=== PATIENT | male | born 1960 ===

== ENCOUNTER 2016-07-17 06:28 | Day surgery (SDC) | payer OTHER ==
[2016-07-17 07:20] VITALS: BMI 33.0
--- NOTE | 2016-07-17 08:37 | CP.SDSHP ---
Same Day Surgery H & P - History Proposed Procedure: COLONSCOPY Pre-Op Diagnosis: SEE NOTES - Previous Medical/Surgical History Cardiac: Hypertension Endocrine/Metabolic: Diabetes, Other Misc: Other Pain: 2.Mild Pain - Allergies Allergies: Allergies No Known Allergies Allergy (Verified 07/17/16 07:18) - Physical Exam General Appearance: N Vital Signs: Vital Signs 07/17/16 07:15 Temperature 98.4 F Pulse Rate 80 Respiratory 20 Rate Blood Pressure 148/91 H O2 Sat by Pulse 98 Oximetry Mental Status: Alert & Oriented x3 Neuro: WNL Heart: Other Lungs: WNL GI: WNL - {Optional Preform as Required} Breast: WNL Abdomen: Other Rectal: WNL Integument: WNL : WNL Ortho: WNL ENT: WNL - Impression Pt. Evaluated Today:Candidate for Anesthesia & Procedure: Yes - Date & Time Time: 08:36 Short Stay Discharge - Short Stay Discharge Admitting Diagnosis/Reason for Visit: ENCOUNTER FOR SCREENING FOR MALIGNANT NEOPLASM OF Disposition: HOME/ ROUTINE
[2016-07-17] MEDS ORDERED: Propofol 10 mg/ml Inj (20 ML) ONE (08:41)
[2016-07-17] MEDS ORDERED: Belladonna-Phenobarbital PO STA (08:51)
[2016-07-17 09:13] VITALS: RESP 14; TEMP 98.6
[2016-07-17 10:09] VITALS: O2SAT 100
[2016-07-17 13:44] VITALS: BP 141/102; PULSE 83
== END 2016-07-17 11:15 | disposition home or self-care (01) ==
LOC: C.ENDO 06:28
PROVIDERS: ATTEND Specialist
DX: Z12.11 Encounter for screening for malignant neoplasm of colon (principal); K57.30 Diverticulosis of large intestine without perforation or abscess without bleeding; K63.89 Other specified diseases of intestine; K64.4 Residual hemorrhoidal skin tags
CPT/HCPCS: 45380; 82948; 88305; J2704

== ENCOUNTER 2016-09-17 15:10 | Emergency (ER) | payer OTHER ==
[2016-09-17 15:10] VITALS: BMI 33.0
[2016-09-17 15:29] VITALS: BP 160/106; TEMP 98.1
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
[2016-09-17 16:52] VITALS: PULSE 89; RESP 20
[2016-09-17 16:56] VITALS: O2SAT 96
== END 2016-09-17 16:52 | disposition home or self-care (01) ==
LOC: C.ER 15:10
DX: S39.012A Strain of muscle, fascia and tendon of lower back, initial encounter (principal); S16.1XXA Strain of muscle, fascia and tendon at neck level, initial encounter; V43.52XA Car driver injured in collision with other type car in traffic accident, initial encounter; Y92.410 Unspecified street and highway as the place of occurrence of the external cause

== ENCOUNTER 2017-10-19 10:38 | Emergency (ER) | payer BC, OTHER ==
[2017-10-19 10:46] VITALS: BMI 31.8
[2017-10-19 10:53] VITALS: RESP 18; O2SAT 98
[2017-10-19] MEDS ORDERED: Sodium Chloride 0.9% 1,000 ML IV SCH (11:30)
--- NOTE | 2017-10-19 11:55 | RAD ---
Date of service: 10/19/2017 HISTORY: Code Stroke COMPARISON: No prior. FINDINGS: LUNGS: No active pulmonary disease. PLEURA: No significant pleural effusion identified, no pneumothorax apparent. CARDIOVASCULAR: Normal. OSSEOUS STRUCTURES: Degenerative changes. VISUALIZED UPPER ABDOMEN: Normal. OTHER FINDINGS: None. IMPRESSION: No active disease.
[2017-10-19 12:03] LABS: BASO % 0.6 % (0.0-2.0); EOS # 0.2 K/uL (0.0-0.7); LYMPH # 2.5 K/uL (1.0-4.3); LYMPH % 35.2 % (20.0-40.0); MEAN CELL VOLUME 85.3 fL (80.0-94.0); MEAN CORPUSCULAR HEMOGLOBIN 30.2 pg (27.0-31.0); MEAN CORPUSCULAR HGB CONC 35.4 g/dL (33.0-37.0); MEAN PLATELET VOLUME 8.3 fL (7.2-11.7); MONO # 0.5 K/uL (0.0-0.8); MONO % 7.3 % (0.0-10.0); NEUT # 3.9 K/uL (1.8-7.0); NEUT % 53.9 % (50.0-75.0); NRBC % 0.1 % (0.0-2.0); RBC 4.98 Mil/uL (4.40-5.90); RED CELL DISTRIBUTION WIDTH 13.6 % (11.5-14.5); WHITE BLOOD COUNT 7.2 K/uL (4.8-10.8)
[2017-10-19 12:04] LABS: PROTHROMBIN TIME 10.8 SECONDS (9.7-12.2)
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
[2017-10-19 12:17] LABS: ALB/GLOB RATIO 1.6 (1.0-2.1); ALBUMIN 4.5 g/dL (3.5-5.0); ALT/SGPT 24 U/L (21-72); AST/SGOT 25 U/L (17-59); BLOOD UREA NITROGEN 15 mg/dL (9-20); CALCIUM 9.2 mg/dl (8.6-10.4); GFR NON-AFRICAN AMERICAN > 60; HDL CHOLESTEROL 29 mg/dL (30-70)
--- NOTE | 2017-10-19 12:26 | CT ---
Date of service: 10/19/2017 PROCEDURE: CT HEAD WITHOUT CONTRAST. HISTORY: headache, weakness, dizziness COMPARISON: 09/17/2016. TECHNIQUE: Axial computed tomography images were obtained through the head/brain without intravenous contrast. Radiation dose: Total exam DLP = 852.25 mGy-cm. This CT exam was performed using one or more of the following dose reduction techniques: Automated exposure control, adjustment of the mA and/or kV according to patient size, and/or use of iterative reconstruction technique. FINDINGS: HEMORRHAGE: No intracranial hemorrhage. BRAIN: There are mild chronic microangiopathic changes. There is no mass, mass effect or abnormal extra-axial fluid collection. There is no territorial infarction. The midline sagittal structures are normal. VENTRICLES: There is mild age-related global parenchymal volume loss and proportionate enlargement of the ventricles and cortical sulci. CALVARIUM: The skull base and calvarium are normal. PARANASAL SINUSES: Predominantly clear. MASTOID AIR CELLS: Unr predominantly clear. OTHER FINDINGS: None. IMPRESSION: No acute intracranial abnormality. No significant interval change.
[2017-10-19 12:28] LABS: LDL CHOLESTEROL 78 mg/dL (0-129)
[2017-10-19 14:11] VITALS: BP 170/99; PULSE 78; TEMP 98
--- NOTE | 2017-10-20 08:52 | CARD ---
APPROVED REPORT Date of service: 10/19/2017 EKG Measurement Heart [id number] <Conclusion> Normal sinus rhythm Normal ECG
== END 2017-10-19 15:55 | disposition home or self-care (01) ==
LOC: C.ER 10:38
DX: R51 Headache (principal); R42 Dizziness and giddiness
CPT/HCPCS: 70450; 71045; 80053; 80061; 82948; 83036; 84484; 85025; 85610; 85730; 93005; 96374; 99285; J1885; J7030

== ENCOUNTER 2018-03-05 08:09 | Emergency (ER) | payer BC ==
[2018-03-05 08:09] VITALS: BMI 31.8
[2018-03-05 08:57] LABS: BASO # 0.1 K/uL (0.0-0.2); EOS # 0.2 K/uL (0.0-0.7); EOS % 2.9 % (0.0-4.0); LYMPH % 34.1 % (20.0-40.0); MEAN CELL VOLUME 86.1 fL (80.0-94.0); MEAN CORPUSCULAR HEMOGLOBIN 30.7 pg (27.0-31.0); MEAN CORPUSCULAR HGB CONC 35.7 g/dL (33.0-37.0); MEAN PLATELET VOLUME 7.8 fL (7.2-11.7); MONO # 0.5 K/uL (0.0-0.8); MONO % 7.7 % (0.0-10.0); NEUT # 3.2 K/uL (1.8-7.0); NEUT % 54.3 % (50.0-75.0); RBC 4.88 Mil/uL (4.40-5.90); RED CELL DISTRIBUTION WIDTH 13.1 % (11.5-14.5)
[2018-03-05 09:12] LABS: ALB/GLOB RATIO 1.5 (1.0-2.1); ALBUMIN 4.3 g/dL (3.5-5.0); ALT/SGPT 48 U/L (21-72); AST/SGOT 45 U/L (17-59); BLOOD UREA NITROGEN 12 mg/dL (9-20); CALCIUM 8.8 mg/dl (8.6-10.4); GFR NON-AFRICAN AMERICAN > 60
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
[2018-03-05 09:21] LABS: B-TYPE NATRIURETIC PEPTIDE 14.4 pg/mL (0-900)
--- NOTE | 2018-03-05 09:58 | RAD ---
Date of service: 03/05/2018 PROCEDURE: CHEST RADIOGRAPH, 1 VIEW HISTORY: SOB COMPARISON: 10/19/2017. FINDINGS: LUNGS: The lungs are well inflated and clear. PLEURA: No pneumothorax or pleural effusion. CARDIOVASCULAR: The heart is normal in size. No aortic atherosclerotic calcifications present. OSSEOUS STRUCTURES: Within normal limits for the patient's age. VISUALIZED UPPER ABDOMEN: Normal. OTHER FINDINGS: None. IMPRESSION: No active pulmonary disease.
[2018-03-05] MEDS ORDERED: Labetalol 5 mg/ml Inj 20ML IV STA ×3 (10:16→12:39)
[2018-03-05] MEDS ORDERED: Apap-Butalbital-Caffeine 325-50-40mg Tab PO STA (10:16)
[2018-03-05] MEDS ORDERED: Apap-Butalbital-Caffeine 325-50-40mg Tab ONE (10:25)
[2018-03-05] MEDS ORDERED: Labetalol 5mg/ml (4ml) ONE ×2 (10:25→11:35)
[2018-03-05 11:20] LABS: SQUAMOUS EPITHIAL < 1 /hpf (0-5); URINE BILIRUBIN NEGATIVE (NEGATIVE); URINE BLOOD NEGATIVE (NEGATIVE); URINE CLARITY Clear (Clear); URINE COLOR Yellow (YELLOW); URINE GLUCOSE (UA) 3+ mg/dL (Normal); URINE LEUKOCYTE ESTERASE NEG Leu/uL (Negative); URINE PROTEIN 2+ mg/dL (NEGATIVE); URINE UROBILINOGEN NORMAL mg/dL (0.2-1.0)
--- NOTE | 2018-03-05 12:14 | CT ---
Date of service: 03/05/2018 PROCEDURE: CT HEAD WITHOUT CONTRAST. HISTORY: Headache COMPARISON: Comparison made with prior CT scan brain 10/19/2017.. TECHNIQUE: Axial computed tomography images were obtained through the head/brain without intravenous contrast. Radiation dose: Total exam DLP = 1050.23 mGy-cm. This CT exam was performed using one or more of the following dose reduction techniques: Automated exposure control, adjustment of the mA and/or kV according to patient size, and/or use of iterative reconstruction technique. FINDINGS: HEMORRHAGE: No acute parenchymal, subarachnoid or extra-axial hemorrhage.. BRAIN: Mild diffuse/confluent chronic periventricular white matter ischemic changes seen extending peripherally into the deep white matter both cerebral hemispheres.. Additionally, there are scattered chronic appearing bilateral basal nuclei lacunar type infarcts. Mild generalized volume loss. No obvious parenchymal nor extra-axial masses or collections seen on this noncontrast study. Very minimal vascular calcifications both carotid siphons. VENTRICLES: No obstructive hydrocephalus. CALVARIUM: Calvarium intact.. PARANASAL SINUSES: Unremarkable as visualized. No significant inflammatory changes. MASTOID AIR CELLS: Unremarkable as visualized. No inflammatory changes. OTHER FINDINGS: None. IMPRESSION: No acute intracranial hemorrhage.. Mild chronic white matter ischemic changes with scattered chronic bilateral basal nuclei lacunar type infarcts. Mild generalized volume loss.
[2018-03-05 15:18] VITALS: BP 162/98; PULSE 95; RESP 18; TEMP 97.9; O2SAT 98
== END 2018-03-05 15:16 | disposition home or self-care (01) ==
LOC: C.ER 08:09
DX: I10 Essential (primary) hypertension (principal); R42 Dizziness and giddiness; R51 Headache; E78.00 Pure hypercholesterolemia, unspecified; Z87.891 Personal history of nicotine dependence
CPT/HCPCS: 70450; 71045; 80053; 81001; 82948; 83735; 83880; 84484; 85025; 93005; 96374; 99285; J2405

== ENCOUNTER 2018-03-19 18:25 | Observation (INO) | payer BC ==
[2018-03-19 18:34] VITALS: BMI 32.3
[2018-03-19 18:54] LABS: BASO # 0.1 K/uL (0.0-0.2); BASO % 0.9 % (0.0-2.0); EOS # 0.3 K/uL (0.0-0.7); EOS % 3.3 % (0.0-4.0); HEMOGLOBIN 15.3 g/dL (12.0-18.0); LYMPH # 3.9 K/uL (1.0-4.3); LYMPH % 41.7 % (20.0-40.0); MEAN CELL VOLUME 86.3 fL (80.0-94.0); MEAN CORPUSCULAR HEMOGLOBIN 29.8 pg (27.0-31.0); MEAN CORPUSCULAR HGB CONC 34.5 g/dL (33.0-37.0); MEAN PLATELET VOLUME 7.9 fL (7.2-11.7); MONO # 0.8 K/uL (0.0-0.8); MONO % 8.1 % (0.0-10.0); NEUT # 4.3 K/uL (1.8-7.0); RBC 5.16 Mil/uL (4.40-5.90); RED CELL DISTRIBUTION WIDTH 13.2 % (11.5-14.5)
[2018-03-19 18:58] LABS: WHITE BLOOD COUNT 9.4 K/uL (4.8-10.8)
[2018-03-19 19:04] LABS: PROTHROMBIN TIME 10.9 SECONDS (9.7-12.2)
--- NOTE | 2018-03-19 19:04 | CT ---
Date of service: 03/19/2018 PROCEDURE: CT HEAD WITHOUT CONTRAST. HISTORY: Code Stroke, left-sided weakness. COMPARISON: 03/05/2018 CT head. TECHNIQUE: Axial computed tomography images were obtained through the head/brain without intravenous contrast. Supplemental Coronal and Sagittal projections created and reviewed. Radiation dose: Total exam DLP = 1073.82 mGy-cm. This CT exam was performed using one or more of the following dose reduction techniques: Automated exposure control, adjustment of the mA and/or kV according to patient size, and/or use of iterative reconstruction technique. FINDINGS: HEMORRHAGE: No intracranial hemorrhage. BRAIN: No mass effect or edema. No atrophy or chronic microvascular ischemic changes. VENTRICLES: Unremarkable. No hydrocephalus. CALVARIUM: Unremarkable. PARANASAL SINUSES: Unremarkable as visualized. No significant inflammatory changes. MASTOID AIR CELLS: Unremarkable as visualized. No inflammatory changes. OTHER FINDINGS: None. IMPRESSION: No acute intracranial abnormalities. No significant findings to account for the clinical presentation. Code stroke protocol: Study completed 18:47 Radiologist notified 18:51. Results conveyed verbally at 18:59. Interpretation finalized and available for review 19:00.
[2018-03-19 19:09] LABS: ALB/GLOB RATIO 1.5 (1.0-2.1); ALBUMIN 4.9 g/dL (3.5-5.0); ALT/SGPT 36 U/L (21-72); AST/SGOT 35 U/L (17-59); BLOOD UREA NITROGEN 13 mg/dL (9-20); CALCIUM 8.8 mg/dl (8.6-10.4); GFR NON-AFRICAN AMERICAN > 60; HDL CHOLESTEROL 35 mg/dL (30-70)
[2018-03-19 19:18] LABS: LDL CHOLESTEROL 78 mg/dL (0-129)
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
[2018-03-19] MEDS ORDERED: Potassium Chloride 20 mEq ER Tab PO STA (20:23)
[2018-03-19] MEDS ORDERED: Potassium Chloride 20 mEq ER Tab PO ONE (20:41)
[2018-03-19] MEDS: (Novolin R) Insulin Human Regular 100 units/ml vial SC SCH (22:28)
[2018-03-19] MEDS: Omega-3-Acid Ethyl Esters 1 GM Cap PO SCH (23:08)
[2018-03-19 23:16] VITALS: RESP 20
[2018-03-20 00:58] LABS: URINE BILIRUBIN NEGATIVE (NEGATIVE); URINE BLOOD NEGATIVE (NEGATIVE); URINE CLARITY Clear (Clear); URINE COLOR Yellow (YELLOW); URINE GLUCOSE (UA) NORMAL (Normal); URINE LEUKOCYTE ESTERASE NEG Leu/uL (Negative); URINE PROTEIN 1+ mg/dL (NEGATIVE); URINE UROBILINOGEN NORMAL mg/dL (0.2-1.0)
[2018-03-20] MEDS: (Novolin R) Insulin Human Regular 100 units/ml vial SC SCH ×5 (08:16→21:19)
--- NOTE | 2018-03-20 08:22 | RAD ---
Chest x-ray single frontal view HISTORY: Code stroke. COMPARISON: 03/05/2018 Findings: No focal infiltrate or effusion. Heart size within normal limits. Impression: No focal infiltrate or effusion.
[2018-03-20 08:33] LABS: BASO # 0.1 K/uL (0.0-0.2); BASO % 0.8 % (0.0-2.0); EOS # 0.2 K/uL (0.0-0.7); EOS % 3.2 % (0.0-4.0); HEMOGLOBIN 15.6 g/dL (12.0-18.0); LYMPH # 2.8 K/uL (1.0-4.3); LYMPH % 39.6 % (20.0-40.0); MEAN CELL VOLUME 86.6 fL (80.0-94.0); MEAN CORPUSCULAR HGB CONC 34.6 g/dL (33.0-37.0); MEAN PLATELET VOLUME 7.8 fL (7.2-11.7); MONO # 0.6 K/uL (0.0-0.8); MONO % 7.9 % (0.0-10.0); NEUT # 3.4 K/uL (1.8-7.0); NEUT % 48.5 % (50.0-75.0); RBC 5.2 Mil/uL (4.40-5.90); RED CELL DISTRIBUTION WIDTH 13.1 % (11.5-14.5)
[2018-03-20 08:52] LABS: ALB/GLOB RATIO 1.5 (1.0-2.1); ALBUMIN 4.7 g/dL (3.5-5.0); ALT/SGPT 38 U/L (21-72); AST/SGOT 47 U/L (17-59); BLOOD UREA NITROGEN 12 mg/dL (9-20); GFR NON-AFRICAN AMERICAN > 60; HDL CHOLESTEROL 36 mg/dL (30-70)
--- NOTE | 2018-03-20 08:59 | CT ---
Date of service: 03/19/2018 PROCEDURE: CT Angiography of the neck and brain with contrast HISTORY: Left side numbness COMPARISON: None. TECHNIQUE: Contiguous axial images of the neck brain were obtained from the level of the vertex of the skull to the superior mediastinum in the arteriographic phase of enhancement. Coronal and sagittal reformats or also generated. IV contrast dose: 100 cc Visipaque 320 Radiation dose: Total exam DLP = 635.59 mGy-cm. This CT exam was performed using one or more of the following dose reduction techniques: Automated exposure control, adjustment of the mA and/or kV according to patient size, and/or use of iterative reconstruction technique. FINDINGS: RIGHT CAROTID ARTERIES: Common Carotid Artery: Normal. Carotid Bifurcation: Normal. Internal Carotid Artery:Normal. External Carotid Artery (proximal branches): Normal. LEFT CAROTID ARTERIES: Common Carotid Artery: Normal. Carotid Bifurcation: Normal. Internal Carotid Artery:Normal. External Carotid Artery (proximal branches): Normal. VERTEBRAL ARTERIES: Asymmetry of the vertebral arteries right-sided which is much smaller in caliber compared to the left side. OTHER FINDINGS: The major branches of the [id number] patent. Distal branches the anterior middle and posterior cerebral arteries are symmetric. No evidence of intracerebral large aneurysm nor vascular malformation. Minimal aortic atherosclerotic calcification or mural plaque present. 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 Multilevel degenerative spondylosis of the cervical spine IMPRESSION: Normal CT Angiography of the neck.
[2018-03-20 09:02] LABS: LDL CHOLESTEROL 80 mg/dL (0-129)
[2018-03-20] MEDS: Omega-3-Acid Ethyl Esters 1 GM Cap PO SCH ×2 (09:33→17:26)
--- NOTE | 2018-03-20 09:45 | CP.PCM.PN ---
Subjective - Date & Time of Evaluation Date of Evaluation: 03/20/18 Time of Evaluation: 09:45 - Subjective Subjective: H&P [facility] #[id number] Objective - Vital Signs/Intake and Output Vital Signs (last 24 hours): Temp Pulse Resp BP Pulse Ox 97.7 F 80 20 153/104 H 98 03/20/18 08:55 03/20/18 08:55 03/20/18 08:55 03/20/18 08:55 03/20/18 08:55 Intake and Output: 03/20/18 03/20/18 06:59 18:59 Output Total 800 Balance -800 - Medications Medications: Current Medications Aspirin (Aspirin) 325 mg PO DAILY [facility] Last Admin: 03/20/18 09:33 Dose: 325 mg Enoxaparin Sodium (Lovenox) 40 mg SC DAILY [facility] Hydrochlorothiazide (Microzide) 12.5 mg PO DAILY [facility] Last Admin: 03/20/18 09:33 Dose: 12.5 mg Insulin Human Regular (Novolin R) 1 unit SC [facility]; Protocol Last Admin: 03/20/18 08:16 Dose: Not Given Lisinopril (Zestril) 20 mg PO DAILY [facility] Last Admin: 03/20/18 09:33 Dose: 20 mg Losartan Potassium (Cozaar) 50 mg PO DAILY [facility] Last Admin: 03/20/18 09:33 Dose: 50 mg [id number] Ethyl Esters (Lovaza) 1 gm PO BID [facility] Last Admin: 03/20/18 09:33 Dose: 1 gm Rosuvastatin Calcium (Crestor) 10 mg PO HS [facility] Last Admin: 03/19/18 22:27 Dose: 10 mg - Labs Labs: 03/20/18 08:24 03/20/18 08:24 PT 10.9 SECONDS (9.7-12.2) 03/19/18 18:45 INR 1.0 03/19/18 18:45 APTT 33 SECONDS (21-34) 03/19/18 18:45
[2018-03-20] MEDS: Enoxaparin 40 mg Syringe SC SCH (11:18)
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
--- NOTE | 2018-03-20 17:18 | MRI ---
Date of service: 03/20/2018 PROCEDURE: MRI BRAIN WITHOUT CONTRAST HISTORY: Stroke COMPARISON: Comparison made with prior CT scan and CTA brain 03/19/2017. TECHNIQUE: Multiplanar, multisequence MR images of the brain were obtained without intravenous contrast enhancement. FINDINGS: HEMORRHAGE: No acute parenchymal, subarachnoid or extra-axial. No obvious hemosiderin deposition identified on gradient echo weighted sequence. DWI: No evidence of acute or subacute infarcts seen on diffusion imaging. BRAIN PARENCHYMA: Mild chronic periventricular white matter ischemic changes seen extending peripherally into the deep white matter both cerebral hemispheres. In addition, there are multiple chronic appearing lacunar type infarcts scattered about the deep and subcortical white matter including the superior basal nuclei/coronal radiata junctions. Questionable tiny dilated perivascular space or lacunar type infarct left cerebral peduncle. Slightly low lying cerebellar tonsils. Mild age-appropriate volume loss. No obvious parenchymal nor extra-axial masses or collections seen on this noncontrast exam. VENTRICLES: Unremarkable. No hydrocephalus. CRANIUM: Unremarkable. ORBITS: Grossly unremarkable. PARANASAL SINUSES/MASTOIDS: Paranasal sinuses are well-developed and currently well-aerated. VASCULAR SYSTEM: Visualized major vascular flow voids at skull base patent. OTHER FINDINGS: None. IMPRESSION: Mild chronic periventricular white matter ischemic changes seen extending peripherally into the deep white matter both cerebral hemispheres. In addition, there are multiple chronic appearing lacunar type infarcts scattered about the deep and subcortical white matter including the superior basal nuclei/coronal radiata junctions. Questionable tiny dilated perivascular space or lacunar type infarct left cerebral peduncle. Slightly low lying cerebellar tonsils.
--- NOTE | 2018-03-20 17:43 | CARD ---
APPROVED REPORT Date of service: 03/20/2018 EXAM: Two-dimensional and M-mode echocardiogram with Doppler and color Doppler. INDICATION CVA/TIA Dizziness and Vertigo 2D DIMENSIONS IVSd1.0 (0.7-1.1cm)Aortic Root (2D)3.1 (2.0-3.7cm) LVDd4.3 (3.9-5.9cm)PWd1.0 (0.7-1.1cm) LA [id number] (18-58mL)LVDs2.8 (2.5-4.0cm) FS (%) 36.0 %LVEF (%)65.9 (>50%) LVEF (Hanson's)59.97 %IVC0.00 cm M-Mode DIMENSIONS Left Atrium (MM)3.35 (2.5-4.0cm)IVSd1.04 (0.7-1.1cm) Aortic Root3.12 (2.2-3.7cm)LVDd5.08 (4.0-5.6cm) Aortic Cusp Exc.2.02 (1.5-2.0cm)PWd0.98 (0.7-1.1cm) FS (%) 37 %LVDs3.19 (2.0-3.8cm) LVEF (%)67 (>50%) Mitral Valve MV E Aneoobbn84.7cm/sMV A Xlmaqgmb577.2cm/sE/A ratio0.4 TDI Lateral E' Peak V6.48cm/sMedial E' Peak V6.80cm/sE/Lateral E'6.6 E/Medial E'6.3 Tricuspid Valve TR Peak [id number]/sTR Peak Gr.[id number] LEFT VENTRICLE The left ventricle is normal size. There is normal left ventricular wall thickness. Left ventricle systolic function is normal. The Ejection Fraction is 60-65%. There is normal LV segmental wall motion. Transmitral Doppler flow pattern is Grade I-abnormal relaxation pattern. There is no ventricular septal defect visualized. RIGHT VENTRICLE The right ventricle is normal size. The right ventricular systolic function is normal. ATRIA The left atrium is mildly dilated. The right atrium size is normal. AORTIC VALVE The aortic valve is tri-cuspid. The aortic valve is normal in structure. No aortic regurgitation is present. There is no aortic valvular stenosis. MITRAL VALVE The mitral valve is normal in structure. There is no evidence of mitral valve prolapse. Mitral regurgitation is trace. TRICUSPID VALVE The tricuspid valve is normal in structure. There is trace tricuspid regurgitation. Right ventricular systolic pressure is estimated at less than 30 mmHg. There is no pulmonary hypertension. PULMONIC VALVE The pulmonic valve is not well visualized. There is no pulmonic valvular regurgitation. GREAT VESSELS The aortic root is normal in size. The ascending aorta is normal in size. The IVC is normal in size and collapses >50% with inspiration. PERICARDIAL EFFUSION There is no pericardial effusion. <Conclusion> Left ventricle systolic function is normal. The Ejection Fraction is 60-65%. Transmitral Doppler flow pattern is Grade I-abnormal relaxation pattern. Mitral regurgitation is trace.
--- NOTE | 2018-03-20 19:44 | HP ---
CHIEF COMPLAINT: The patient started noticing left arm heaviness and numbness, which progressively got worse and started noticing left facial heaviness and numbness, which started around 1:30 p.m. while was lying down and watching TV. HISTORY OF PRESENT ILLNESS: Mr. Nathan is a 67-year-old male with past medical history of hypertension, hyperlipidemia, diabetes mellitus, anxiety disorder, who has been following up with Dr. Cora Mckeon is primary care physician, came into the emergency room with symptoms of left facial numbness and left arm numbness and weakness which started around 1:30 p.m. yesterday while he was lying down and watching TV. As per the patient, he has been under a lot of stress both from family and work-related stress, has been seeing his primary, was given medication for his anxiety, Yesterday around 1:30 p.m., he was lying down watching TV he suddenly started noticing left arm heaviness and numbness and felt like there was no circulation. The symptoms lasted then followed by left-sided facial numbness and heaviness. He felt different on his left side of the face and foot was cold. All his symptoms were progressively getting worse, so he decided to come to the emergency room around 6:30. In the emergency room, he received treatment and the patient claims that with the treatment that he received in the emergency room his symptoms resolved after a little while. When I examined, he denies any left-sided weakness or numbness or facial numbness. Denies any headache, but he claims he has been having this intermittent dizziness while he is in the shower or while he is trying to pickup something from the floor. His dizziness is intermittent and he claims that he was evaluated in the emergency room and he was sent home from the ED after the evaluation. He was here about two weeks ago. He claims he did not have weakness but he felt dizzy. He denies any chest pain, shortness of breath or wheezing. Denies any nausea, vomiting, abdominal pain, diarrhea or constipation. He claims that he felt nauseous yesterday and now he claims his left eye is watery. Denies any other neurologic symptoms. Denies any urinary incontinence. Denies any joint pain or swelling. Denies any other urinary symptoms. PAST MEDICAL HISTORY: As described hypertension, hyperlipidemia, diabetes mellitus, anxiety. PAST SURGICAL HISTORY: He claims he underwent parathyroid surgery about 10 years ago, unclear etiology and he underwent colonoscopy and endoscopy about three years ago. Colonoscopy revealed hemorrhoids. FAMILY HISTORY: Coronary artery disease in mother who at age 68 and father at age 82. PERSONAL HISTORY: He is , living alone, having two children. 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 SOCIAL HISTORY: He is an ex-smoker, quit about 20 years ago, smoked one pack per day for about 10 years. He drinks alcohol socially, Denies any other drug abuse. ALLERGIES: NO KNOWN DRUG ALLERGIES. MEDICATIONS: His home medication include metformin 1000 mg b.i.d., atorvastatin 20 mg daily, Fioricet one tablet b.i.d., Losartan-hydrochlorothiazide 50/12.5 daily, lisinopril 20 mg daily. He claims that he also takes pioglitazone 15 mg daily. REVIEW OF SYSTEMS: As described in history of present illness, all other systems reviewed and were found to be negative, PHYSICAL EXAMINATION: GENERAL: Middle-aged male, lying in bed, in no acute distress. VITAL SIGNS: Blood pressure 153/104, pulse 80, respirations 20, temperature 97.7 degrees Fahrenheit, O2 saturation is 98% on room air. HEENT: Pupils equal, round, and reacting to light and accommodation. Extraocular muscles intact. No icterus. No pallor. No oral thrush. No pharyngeal congestion. NECK: Supple. No JVD. LUNGS: Bilateral vesicular breath sounds. No wheezing. No rhonchi. CARDIOVASCULAR SYSTEM: S1, S2 present; regular. ABDOMEN: Soft, nontender. Bowel sounds present. No guarding. No rigidity. No rebound tenderness noted. CENTRAL NERVOUS SYSTEM: Awake, alert, oriented x3. No focal deficits noted. Cranial nerves II to XII grossly intact. Power 5/5 both upper and lower extremities. Reflexes are 2+, equivocal. Gait did not test. EXTREMITIES: No edema. Palpable peripheral pulses. LABORATORY DATA: Done from the ED, WBC 9.4, hemoglobin 15.3, hematocrit 44.5, platelets 230. PT 10.9, INR 1, PTT 33. Sodium 134, potassium 3.3, chloride 95, bicarb 26, BUN 13, creatinine 0.8, glucose 286, hemoglobin A1c 7.7, calcium 8.8, AST 35, ALT 36, alkaline phosphatase 133, cardiac enzymes x1 negative. Cholesterol 130, triglycerides 216, LDL 80, HDL 36. UA negative. EKG normal sinus rhythm. No acute ST-T changes. Chest x-ray no focal infiltrate or effusion. CT head negative. CT angiogram of the head and neck is negative. Carotid Doppler and echo results pending. ASSESSMENT: Middle-aged male with history of hypertension, hyperlipidemia, diabetes mellitus, anxiety disorder, admitted for left-sided upper extremity weakness and numbness and left facial numbness. His symptoms resolved after coming to the ED and all the workup so far is negative and the patient is being admitted for further evaluations. 1. Left sided upper extremity and facial numbness and weakness, possible transient ischemic attack versus cardiovascular disease, rule out radiculopathy. 2. Hypertension uncontrolled. 3. Diabetes mellitus uncontrolled. 4. Hyperlipidemia. 5. Anxiety disorder. PLAN: The patient is being admitted to Telemetry. We will do serial cardiac enzymes, serial EKG. We will get echo and carotid Doppler results. We will give aspirin 325 mg p.o. daily. Continue with his home medications. We will do Accu-Cheks every a.c. and at bedtime and adjust his medication. Add metoprolol to his home medication. Continue with Lipitor and add Lovaza. We will obtain neurology evaluation. We will do neuro checks every 4 hours. Marcos Montaño MD
[2018-03-21] MEDS: (Novolin R) Insulin Human Regular 100 units/ml vial SC SCH ×4 (07:42→21:32)
[2018-03-21 09:40] LABS: BASO # 0.1 K/uL (0.0-0.2); BASO % 0.8 % (0.0-2.0); EOS # 0.2 K/uL (0.0-0.7); EOS % 3.5 % (0.0-4.0); HEMOGLOBIN 15.3 g/dL (12.0-18.0); LYMPH # 2.6 K/uL (1.0-4.3); LYMPH % 39.5 % (20.0-40.0); MEAN CELL VOLUME 86.9 fL (80.0-94.0); MEAN CORPUSCULAR HGB CONC 34.6 g/dL (33.0-37.0); MEAN PLATELET VOLUME 7.9 fL (7.2-11.7); MONO # 0.5 K/uL (0.0-0.8); MONO % 7.4 % (0.0-10.0); NEUT # 3.2 K/uL (1.8-7.0); NEUT % 48.8 % (50.0-75.0); RBC 5.1 Mil/uL (4.40-5.90); RED CELL DISTRIBUTION WIDTH 13.3 % (11.5-14.5); WHITE BLOOD COUNT 6.5 K/uL (4.8-10.8)
[2018-03-21 09:56] LABS: ALB/GLOB RATIO 1.6 (1.0-2.1); ALBUMIN 4.6 g/dL (3.5-5.0); ALT/SGPT 36 U/L (21-72); AST/SGOT 40 U/L (17-59); BLOOD UREA NITROGEN 16 mg/dL (9-20); GFR NON-AFRICAN AMERICAN > 60
[2018-03-21] MEDS: Omega-3-Acid Ethyl Esters 1 GM Cap PO SCH ×2 (10:07→18:04)
[2018-03-21] MEDS: Enoxaparin 40 mg Syringe SC SCH (10:08)
--- NOTE | 2018-03-21 13:21 | CP.PCM.PN ---
Subjective - Date & Time of Evaluation Date of Evaluation: 03/21/18 Time of Evaluation: 13:20 - Subjective Subjective: Progress note dictated #[id number] Objective - Vital Signs/Intake and Output Vital Signs (last 24 hours): Temp Pulse Resp BP Pulse Ox 97.8 F 80 20 156/99 H 95 03/21/18 09:17 03/21/18 09:17 03/21/18 09:17 03/21/18 09:17 03/21/18 09:17 - Medications Medications: Current Medications Acetaminophen (Tylenol 325mg Tab) 650 mg PO Q6 PRN PRN Reason: pain Aspirin (Aspirin) 325 mg PO DAILY [facility] Last Admin: 03/21/18 10:07 Dose: 325 mg Enoxaparin Sodium (Lovenox) 40 mg SC DAILY [facility] Last Admin: 03/21/18 10:08 Dose: 40 mg Hydrochlorothiazide (Microzide) 12.5 mg PO DAILY [facility] Last Admin: 03/21/18 10:07 Dose: 12.5 mg Insulin Human Regular (Novolin R) 1 unit SC [facility]; Protocol Last Admin: 03/21/18 11:43 Dose: Not Given Lisinopril (Zestril) 20 mg PO DAILY [facility] Last Admin: 03/21/18 10:07 Dose: 20 mg Losartan Potassium (Cozaar) 50 mg PO DAILY [facility] Last Admin: 03/21/18 10:07 Dose: 50 mg Metoprolol Tartrate (Lopressor) 50 mg PO BID [facility] Last Admin: 03/21/18 10:08 Dose: 50 mg [id number] Ethyl Esters (Lovaza) 1 gm PO BID [facility] Last Admin: 03/21/18 10:07 Dose: 1 gm Rosuvastatin Calcium (Crestor) 10 mg PO [facility] Last Admin: 03/20/18 21:15 Dose: 10 mg - Labs Labs: 03/21/18 09:33 03/21/18 09:33 PT 10.9 SECONDS (9.7-12.2) 03/19/18 18:45 INR 1.0 03/19/18 18:45 APTT 33 SECONDS (21-34) 03/19/18 18:45
--- NOTE | 2018-03-21 18:47 | PN ---
DATE: 03/21/2018 SUBJECTIVE: The patient was seen and examined at bedside. The patient is feeling better. Denies any left-sided weakness or numbness. His blood pressures are still running high on exam, but he denies any other complaints. PHYSICAL EXAMINATION: GENERAL: A middle-aged male, lying in bed, in no acute distress. VITAL SIGNS: Blood pressure 156/99, pulse 80, respirations 20, temperature 97.8 degrees Fahrenheit, O2 saturation is 95% on room air. HEENT: Pupils equal, round, and reacting to light and accommodation. Extraocular muscles intact. No icterus. No pallor. No oral thrush. No pharyngeal congestion. NECK: Supple. No JVD. LUNGS: Bilateral vesicular breath sounds. No wheezing. No rhonchi. CARDIOVASCULAR SYSTEM: S1 and S2 present, regular. ABDOMEN: Soft, nontender. Bowel sounds present. No guarding. No rigidity. No rebound tenderness noted. CENTRAL NERVOUS SYSTEM: Alert, awake, oriented x3. No focal deficits noted. EXTREMITIES: No edema. Palpable peripheral pulses. MEDICATIONS: Includes Tylenol 650 every 6 hours p.r.n., aspirin 325 mg daily, Lovenox 40 mg subcu daily, hydrochlorothiazide 12.5 mg daily, Zestril 20 mg daily, Cozaar 50 mg daily, Lopressor 50 mg p.o. b.i.d., 100 mg b.i.d., Crestor 10 mg p.o. at bedtime. LABORATORY DATA: Labs from today; WBC 6.5, hemoglobin 15.3, hematocrit 44.3, and platelets 205. Sodium 135, potassium 4.3, chloride 95, bicarb 25, BUN 16, creatinine 0.7, glucose 241, calcium 9. LFTs within normal limits. MRI, chronic microvascular changes. Echocardiogram, normal EF and trace MR. ASSESSMENT AND PLAN: A Middle-aged male with history of hypertension, hyperlipidemia, diabetes mellitus, anxiety disorder, admitted for left-sided upper extremity and facial numbness and weakness, symptoms resolved in the ED. All the workup so far negative other than MRI showing chronic microvascular changes, possibly from uncontrolled hypertension. His blood pressures are running high. His medications are adjusted. Blood pressures are still high. We will monitor the patient closely and adjust his medication. We will follow up with Neurology. If the patient is cleared by Neurology, we will plan discharging the patient home. Continue with other current medication. Marcos Montaño MD
[2018-03-22 07:55] VITALS: BP 150/103; PULSE 78; TEMP 97.8; O2SAT 95
[2018-03-22] MEDS: (Novolin R) Insulin Human Regular 100 units/ml vial SC SCH ×2 (08:08→11:36)
[2018-03-22] MEDS: Enoxaparin 40 mg Syringe SC SCH (10:04)
[2018-03-22] MEDS: Omega-3-Acid Ethyl Esters 1 GM Cap PO SCH (10:04)
--- NOTE | 2018-03-22 11:53 | CP.PCM.PN ---
Subjective - Date & Time of Evaluation Date of Evaluation: 03/22/18 Time of Evaluation: 11:53 - Subjective Subjective: Discharge summary dictated #[id number] Objective - Vital Signs/Intake and Output Vital Signs (last 24 hours): Temp Pulse Resp BP Pulse Ox 97.8 F 78 20 150/103 H 95 03/22/18 07:30 03/22/18 07:30 03/22/18 07:30 03/22/18 07:30 03/22/18 07:30 - Medications Medications: Current Medications Acetaminophen (Tylenol 325mg Tab) 650 mg PO Q6 PRN PRN Reason: pain Aspirin (Aspirin) 325 mg PO DAILY [facility] Last Admin: 03/22/18 10:03 Dose: 325 mg Enoxaparin Sodium (Lovenox) 40 mg SC DAILY [facility] Last Admin: 03/22/18 10:04 Dose: 40 mg Hydrochlorothiazide (Microzide) 12.5 mg PO DAILY [facility] Last Admin: 03/22/18 10:04 Dose: 12.5 mg Insulin Human Regular (Novolin R) 1 unit SC [facility]; Protocol Last Admin: 03/22/18 11:36 Dose: 1 unit Lisinopril (Zestril) 20 mg PO DAILY [facility] Last Admin: 03/22/18 10:03 Dose: 20 mg Losartan Potassium (Cozaar) 50 mg PO DAILY [facility] Last Admin: 03/22/18 10:04 Dose: 50 mg Metoprolol Tartrate (Lopressor) 50 mg PO BID [facility] Last Admin: 03/22/18 10:03 Dose: 50 mg [id number] Ethyl Esters (Lovaza) 1 gm PO BID [facility] Last Admin: 03/22/18 10:04 Dose: 1 gm Rosuvastatin Calcium (Crestor) 10 mg PO [facility] Last Admin: 03/21/18 21:32 Dose: 10 mg - Labs Labs: 03/21/18 09:33 03/21/18 09:33 PT 10.9 SECONDS (9.7-12.2) 03/19/18 18:45 INR 1.0 03/19/18 18:45 APTT 33 SECONDS (21-34) 03/19/18 18:45
--- NOTE | 2018-03-22 12:12 | CARD ---
APPROVED REPORT Date of service: 03/19/2018 EKG Measurement Heart [id number] <Conclusion> Normal sinus rhythm Normal ECG
--- NOTE | 2018-03-22 14:16 | VASCLAB ---
Date of service: 03/20/2018 PROCEDURE: Carotid Duplex Exam. HISTORY: CVA COMPARISON: None available. TECHNIQUE: Grayscale and duplex Doppler evaluation of the cervical carotid and vertebral arteries were performed. The common carotid, carotid bifurcations and cervical Internal Carotid Artery (ICA) and proximal External Carotid Artery (ECA) were evaluated. The vertebral arteries were evaluated for gross patency and flow direction. Report prepared by MARILEE Sanders FINDINGS: RIGHT CAROTID ARTERIES: 1. Common Carotid Artery: No significant focal plaque formation of the right common carotid artery. Maximum Peak Systolic velocity: 59 cm/sec: End-diastolic velocity 13 cm/sec. 2. Carotid Bifurcation: plaque formation. Maximum Peak Systolic velocity: 55 cm/sec: End-diastolic velocity 14 cm/sec. 3. Internal Carotid Artery: Plaque description: 3.1. Proximal Segment: Peak systolic velocity 41 cm/sec: End-diastolic velocity 17 cm/sec - % stenosis 0-15% 3.2. Middle Segment: Peak systolic velocity 54 cm/sec: End-diastolic velocity 18 cm/sec - % stenosis 0-15% 3.3. Distal Segment: Peak systolic velocity 45 cm/sec: End-diastolic velocity 17 cm/sec - % stenosis 0-15% 4. External Carotid Artery: No significant focal plaque formation. Peak systolic velocity 93 cm/sec 5. ICA/CCA Ratio: 1.1 LEFT CAROTID ARTERIES: 1. Common Carotid Artery: No significant focal plaque formation of the left common carotid artery. Maximum Peak Systolic velocity: 80 cm/sec: End-diastolic velocity 18 cm/sec. 2. Carotid Bifurcation: plaque formation. Maximum Peak Systolic velocity: 40 cm/sec: End-diastolic velocity 10 cm/sec. 3. Internal Carotid Artery: Plaque description: 3.1. Proximal Segment: Peak systolic velocity 40 cm/sec: End-diastolic velocity 14 cm/sec - % stenosis 0-15% 3.2. Middle Segment: Peak systolic velocity 36 cm/sec: End-diastolic velocity 15 cm/sec - % stenosis 0-15% 3.3. Distal Segment: Peak systolic velocity 79 cm/sec: End-diastolic velocity 34 cm/sec - % stenosis 0-15% 4. External Carotid Artery: No significant focal plaque formation. Peak systolic velocity 69 cm/sec 5. ICA/CCA Ratio: 1.7 VERTEBRAL ARTERIES: 1. Right Vertebral Artery: The right vertebral artery flow direction is antegrade. 2. Left Vertebral Artery: The left vertebral artery flow direction is antegrade. OTHER FINDINGS: 1. Right Brachial Blood pressure: 170/110 mmHg. 2. Left Brachial Blood pressure: 180/110 mmHg. IMPRESSION: RIGHT: Duplex scan does not suggest hemodynamically significant stenosis of the right extracranial carotid arteries. LEFT: Duplex scan does not suggest hemodynamically significant stenosis of the left extracranial carotid arteries.
--- NOTE | 2018-03-22 19:57 | CARD ---
APPROVED REPORT Date of service: 03/20/2018 EKG Measurement Heart [id number] <Conclusion> Sinus rhythm with premature atrial complexes with aberrant conduction Otherwise normal ECG
== END 2018-03-22 13:26 | disposition home or self-care (01) ==
LOC: C.ER 18:25 → C.9E 20:38 → C.6T 22:07
PROVIDERS: ADMIT Internal Medicine; ATTEND Internal Medicine
DX: R20.0 Anesthesia of skin (principal); R42 Dizziness and giddiness; R29.898 Other symptoms and signs involving the musculoskeletal system; I10 Essential (primary) hypertension; E11.65 Type 2 diabetes mellitus with hyperglycemia; E78.2 Mixed hyperlipidemia; F41.9 Anxiety disorder, unspecified; Z87.891 Personal history of nicotine dependence; Z90.89 Acquired absence of other organs; Z79.899 Other long term (current) drug therapy
CPT/HCPCS: 36415; 70450; 70496; 70498; 70551; 71045; 80053; 80061; 81001; 82948; 83036; 84484; 85025; 85610; 85730; 86850; 86900; 93005; 93306; 93880; 97116; 97161; 97165; 97530; 99285; G0378; G8978; G8979; G8980; G8987; G8988; G8989; J1650

== ENCOUNTER 2018-03-26 06:30 | Inpatient (IN) | payer BC ==
[2018-03-26 06:39] VITALS: BMI 32.8
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
[2018-03-26] MEDS ORDERED: Iodixanol 320 MG/ML 100 ML BOTTLE IV ONE (06:46)
[2018-03-26 06:50] LABS: BASO # 0.1 K/uL (0.0-0.2); BASO % 0.9 % (0.0-2.0); EOS # 0.3 K/uL (0.0-0.7); EOS % 4.2 % (0.0-4.0); LYMPH # 2.1 K/uL (1.0-4.3); LYMPH % 33.2 % (20.0-40.0); MEAN CORPUSCULAR HEMOGLOBIN 30.5 pg (27.0-31.0); MEAN PLATELET VOLUME 7.8 fL (7.2-11.7); MONO # 0.5 K/uL (0.0-0.8); MONO % 8.6 % (0.0-10.0); NEUT # 3.4 K/uL (1.8-7.0); NEUT % 53.1 % (50.0-75.0); RBC 4.93 Mil/uL (4.40-5.90); RED CELL DISTRIBUTION WIDTH 13.1 % (11.5-14.5); WHITE BLOOD COUNT 6.4 K/uL (4.8-10.8)
[2018-03-26 06:58] LABS: INR 1.1; PROTHROMBIN TIME 12.2 SECONDS (9.7-12.2)
[2018-03-26] MEDS: Sodium Chloride 0.9% 1,000 ML IV SCH ×2 (07:02→19:17)
[2018-03-26 07:06] LABS: ALB/GLOB RATIO 1.7 (1.0-2.1); ALBUMIN 4.6 g/dL (3.5-5.0); ALT/SGPT 28 U/L (21-72); AST/SGOT 30 U/L (17-59); BLOOD UREA NITROGEN 12 mg/dL (9-20); GFR NON-AFRICAN AMERICAN > 60; HDL CHOLESTEROL 31 mg/dL (30-70)
[2018-03-26 07:16] LABS: LDL CHOLESTEROL 58 mg/dL (0-129)
--- NOTE | 2018-03-26 07:51 | CT ---
Date of service: 03/26/2018 PROCEDURE: CT HEAD WITHOUT CONTRAST. HISTORY: Code Stroke COMPARISON: Comparison is made with the previous CT and CTA dated 03/19/2018 TECHNIQUE: Axial computed tomography images were obtained through the head/brain without intravenous contrast. Radiation dose: Total exam DLP = 977.31 mGy-cm. This CT exam was performed using one or more of the following dose reduction techniques: Automated exposure control, adjustment of the mA and/or kV according to patient size, and/or use of iterative reconstruction technique. FINDINGS: HEMORRHAGE: No intracranial hemorrhage. BRAIN: No mass effect or edema. Mild atrophy and mild to moderate chronic microvascular white matter ischemic disease. VENTRICLES: Unremarkable. No hydrocephalus. CALVARIUM: Unremarkable. PARANASAL SINUSES: Unremarkable as visualized. No significant inflammatory changes. MASTOID AIR CELLS: Unremarkable as visualized. No inflammatory changes. OTHER FINDINGS: None. IMPRESSION: No evidence of acute intracranial hemorrhage intracranial collection mass effect or midline shift. No CT evidence of acute territorial infarction. Preliminary report contains concordant findings was submitted by [facility] Radiology.
[2018-03-26 08:36] LABS: SQUAMOUS EPITHIAL 1 /hpf (0-5); URINE BILIRUBIN NEGATIVE (NEGATIVE); URINE BLOOD NEGATIVE (NEGATIVE); URINE CLARITY Clear (Clear); URINE COLOR Straw (YELLOW); URINE GLUCOSE (UA) NORMAL (Normal); URINE LEUKOCYTE ESTERASE NEG Leu/uL (Negative); URINE PROTEIN NEGATIVE (NEGATIVE); URINE UROBILINOGEN NORMAL mg/dL (0.2-1.0)
--- NOTE | 2018-03-26 09:09 | CT ---
Date of service: 03/26/2018 PROCEDURE: CT Angiography of the neck and brain. HISTORY: numbness left face , arm COMPARISON: Comparison is made to the previous study dated 03/19/2018 TECHNIQUE: CT angiography of the intracranial arteries was performed. Coronal and sagittal maximum intensity projection reformated images were generated. Radiation dose: Total exam DLP = 587.59 mGy-cm. This CT exam was performed using one or more of the following dose reduction techniques: Automated exposure control, adjustment of the mA and/or kV according to patient size, and/or use of iterative reconstruction technique. FINDINGS: RIGHT CAROTID ARTERIES: Common Carotid Artery: Normal. Carotid Bifurcation: Normal. Internal Carotid Artery:Normal. External Carotid Artery (proximal branches): Normal. LEFT CAROTID ARTERIES: Common Carotid Artery: Normal. Carotid Bifurcation: Normal. Internal Carotid Artery:Normal. External Carotid Artery (proximal branches): Normal. VERTEBRAL ARTERIES: Right Vertebral Artery: The right vertebral artery is small in size. Left Vertebral Artery: The left vertebral artery is dominant. INTERNAL CEREBRAL ARTERIES: Unremarkable. The skull base, petrous, cavernous and supraclinoid segments are bilaterally widely patent. ANTERIOR CEREBRAL ARTERIES: Unremarkable. A1 and A2 segments are widely patent. Smaller distal branches unremarkable, as visualized. MIDDLE CEREBRAL ARTERIES: Unremarkable. M1 and M2 segments are widely patent. Perisylvian branches grossly symmetric. POSTERIOR CIRCULATION: Basilar Artery: Unremarkable. Distal Vertebral Arteries: Unremarkable. Posterior Cerebral Arteries: Unremarkable. Posterior Inferior Cerebellar Arteries: Unremarkable. ANEURYSM/ VASCULAR MALFORMATIONS: None. OTHER FINDINGS: The right thyroid lobe is not visualized likely due to prior hemithyroidectomy. IMPRESSION: No evidence of arterial occlusion or critical stenosis in the neck and head. No significant interval changes noted since the prior study. Preliminary report contains concordant findings was submitted by [facility] Radiology.
[2018-03-26] MEDS ORDERED: Influenza Vaccine 60 mcg/0.5 mL SYR (4YR UP) IM ONE (10:10)
--- NOTE | 2018-03-26 10:39 | CP.PCM.PN ---
Subjective - Date & Time of Evaluation Date of Evaluation: 03/26/18 Time of Evaluation: 10:15 - Subjective Subjective: Progress note dictated #[id number] Objective - Vital Signs/Intake and Output Vital Signs (last 24 hours): Temp Pulse Resp BP Pulse Ox 98.1 F 77 18 165/110 H 98 03/26/18 09:35 03/26/18 09:35 03/26/18 09:35 03/26/18 09:35 03/26/18 09:35 - Medications Medications: Current Medications Aspirin (Ecotrin) 81 mg PO DAILY [facility] Carvedilol (Coreg) 6.25 mg PO BID [facility] Clopidogrel Bisulfate (Plavix) 75 mg PO DAILY [facility] Home Med (Atorvastatin [Lipitor]) 20 mg PO DAILY [facility] Home Med (Metformin [Glucophage]) 1,000 mg PO BID [facility] Sodium Chloride (Sodium Chloride 0.9%) 1,000 mls @ 100 mls/hr IV .Q10H [facility] Last Admin: 03/26/18 07:02 Dose: 100 mls/hr Insulin Human Regular (Novolin R) 1 unit SC [facility]; Protocol Lisinopril (Zestril) 20 mg PO DAILY [facility] Pneumococcal Polyvalent Vaccine (Pneumovax 23 Vaccine) 0.5 ml IM .ONCE ONE Stop: 03/27/18 10:11 Sitagliptin Phosphate (Januvia) 50 mg PO DAILY [facility] - Labs Labs: 03/26/18 06:47 03/26/18 06:47 PT 12.2 SECONDS (9.7-12.2) 03/26/18 06:47 INR 1.1 03/26/18 06:47 APTT 34 SECONDS (21-34) 03/26/18 06:47
--- NOTE | 2018-03-26 10:50 | RAD ---
HISTORY: Code Stroke COMPARISON: Chest x-ray performed 03/19/18 TECHNIQUE: Chest, one view. FINDINGS: Examination limited by habitus. LUNGS: No focal consolidation. Please note that chest x-ray has limited sensitivity for the detection of pulmonary masses. PLEURA: No significant pleural effusion identified. No definite pneumothorax . CARDIOVASCULAR: Heart size appears within normal limits. No significant atherosclerotic calcification present. OSSEOUS STRUCTURES: No acute osseous abnormality identified. VISUALIZED UPPER ABDOMEN: Unremarkable. OTHER FINDINGS: None. IMPRESSION: No focal consolidation.
[2018-03-26] MEDS: (Novolin R) Insulin Human Regular 100 units/ml vial SC SCH ×3 (11:27→22:00)
--- NOTE | 2018-03-26 14:35 | MRI ---
Date of service: 03/26/2018 PROCEDURE: MR CERVICAL SPINE WITHOUT CONTRAST HISTORY: left sided numbness COMPARISON: Comparison is made to the previous CT dated 09/17/2016 TECHNIQUE: Multiecho multiplanar sequences were performed through the cervical spine without the use of intravenous contrast. FINDINGS: Normal lordotic curvature. Craniocervical junction unremarkable. No evidence of acute compression deformity. No marrow signal abnormality. Normal cervical cord. No paraspinal abnormality. C2-C3: No disc herniation, spinal canal stenosis or neural foraminal narrowing. C3-C4: There is a small osteophyte bulging disc without evidence of significant spinal or neural foraminal narrowing. C4-C5: There is a small to moderate size bulging disc which resulting mild thecal sac narrowing. C5-C6: There is osteophyte posterior bulging disc associated with mild posterior ligament and facet joint hypertrophy which resulting in mild spinal stenosis. There is mild right neural foraminal narrowing. C6-C7: There is a small broad-based bulging disc associated with mild posterior ligament hypertrophy which resulting in mild spinal and right neural foraminal narrowing. C7-T1: No disc herniation, spinal canal stenosis or neural foraminal narrowing. OTHER FINDINGS: None. IMPRESSION: Moderate degenerative disc changes. Multilevel posterior osteophyte bulging disc which resulting in mild spinal stenosis more prominent at C5-C6 and C6-C7. Mild right neural foraminal narrowing at C5-C6 and C6-C7 noted.
[2018-03-26] MEDS ORDERED: Lidocaine Hydrochloride 10 ML INJ ONE (14:39)
[2018-03-26] MEDS ORDERED: Lidocaine/Epinephrine 1% 1:100000 10 ML IJ ONE (14:39)
[2018-03-26] MEDS ORDERED: ceFAZolin 1 GM in Sodium Chloride 0.9% 100 ML IVPB ONE (15:00)
--- NOTE | 2018-03-26 15:55 | PCM.OP ---
Operative Report - Operative Report Date of Surgery/Procedure: 03/26/18 Time of Surgery/Procedure: 15:51 Surgeon: Dr. Jasbir Plata Anesthesia/Sedation: local only Pre-Operative Diagnosis: cryptogenic stroke Post-Operative Diagnosis: same Indication for Surgery: cryptogenic stroke Operative Findings: normal [employer] LINQ SN [id number] loop recorder insertion Procedure/Operation Description: see dictation Estimated Blood Loss: none Complications: none Discharge & Condition: 1. stable for discharge from electrophysiology perspective 2. no further antibiotics needed 3. do not get incision wet for 3 days 4. take off top dressing in 3 days 5. steristrips will fall off naturally in 2 weeks 6. follow up with Dr. Jasbir Plata in [place] [facility] office in 2 weeks, call [phone] for appointment
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
[2018-03-26 22:49] LABS: CK-MB 0.49 ng/mL (0.0-3.38); TROPONIN I 0.013 ng/mL (0.00-0.120)
--- NOTE | 2018-03-26 23:34 | HP ---
CHIEF COMPLAINT: Left-sided facial numbness and upper extremity numbness which started yesterday evening. HISTORY OF PRESENT ILLNESS: Mr. Nathan is a 57-year-old male with past medical history of hypertension, hyperlipidemia, diabetes mellitus, anxiety, who has been following up with Dr. Annalisa Mckeon as the primary care physician, who was recently admitted to the hospital on 03/19/2018, for similar symptoms of left arm heaviness and numbness and left facial numbness that lasted for few hours, which happened while he was watching TV at home. He was admitted to [facility] on 03/19/2018, discharged to home on 03/22/2018, after he had extensive workup and neurologically all the workup was negative. The patient returning to the ED with similar symptoms of left upper extremity numbness and left-sided facial numbness, which has been there since yesterday evening. As per the patient, since his discharge he had followed up with his primary care physician on Thursday, and the patient's medications were changed and the patient was given to follow up with Neurology. He never refilled his new prescription but has been taking his old medications. On Thursday evening, he felt the similar symptoms of left upper extremity numbness and left facial numbness. All the symptoms lasted for few hours and resolved on its own. He was fine until yester evening when he started feeling the similar symptoms of heaviness and numbness. He feels different on his left side of the body. He went to sleep after taking his pills thinking it would go away, but he woke up at 3 a.m. with worsening symptoms, which made him come to the emergency room. After he came to the emergency room, his symptoms are slightly better. He still feels slight difference in his sensation. Denies any headache or dizziness. Denies any chest pain, shortness of breath, or wheezing. Denies any nausea, vomiting, abdominal pain, diarrhea, or constipation. Denies any urinary complaints. Denies any neurologic symptoms. Denies any syncope. Denies any other symptoms. PAST SURGICAL HISTORY: He underwent parathyroid surgery about 10 years ago and had colonoscopy and endoscopy done about 3 years ago. As per him, colonoscopy revealed hemorrhoids. PERSONAL HISTORY: He is , living alone. Having 2 children. 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 FAMILY HISTORY: Coronary artery disease in mother, who at age 68 and father diet at age 82. SOCIAL HISTORY: He is an ex-smoker, quit about 20 years ago, smoked one pack per day for about 10 years. He drinks alcohol socially. Denies any other drug abuse. ALLERGIES: NO KNOWN DRUG ALLERGIES. MEDICATIONS: His home medications include atorvastatin 20 mg daily, Fioricet daily, lisinopril 20 mg daily, Coreg 6.25 mg p.o. b.i.d., pioglitazone 15 mg daily, Plavix 75 mg p.o. daily, aspirin 81 mg daily. REVIEW OF SYSTEMS: As described in history of present illness. All other systems reviewed and were found to be negative. PHYSICAL EXAMINATION: GENERAL: A middle-aged male lying in bed in no acute distress. VITAL SIGNS: Blood pressure 158/106, pulse 89, respirations 18, temperature 98.1 degrees Fahrenheit, O2 saturation 97% on room air. HEENT: Pupils equal, round, and reacting to light and accommodation. Extraocular muscles are intact. No icterus. No pallor. No oral thrush. No pharyngeal congestion. NECK: Supple. No JVD. No thyromegaly. CHEST: Moving equally bilaterally on respiration. LUNGS: Bilateral vesicular breath sounds. No wheezing. No rhonchi. CARDIOVASCULAR: S1, S2 present. Regular. ABDOMEN: Soft and nontender. Bowel sounds present. No guarding. No rigidity. No rebound tenderness noted. MICROSYSTEMS ENGINEER: Alert, awake, oriented x3. No focal deficits noted, but there is decreased pinprick sensation on the left side of the face and the left upper extremity compared to the right one. Cranial nerves II through XII grossly intact. Power 5/5. Reflexes 2+ equivocal. Plantars downgoing. EXTREMITIES: No edema. Palpable peripheral pulses. LABORATORY DATA: Done from the ED, WBC 6.4, hemoglobin 15, hematocrit 42.9, and platelets 211. PT 12.2, INR 1.1, PTT 34. Sodium 136, potassium 4.3, chloride 99, bicarbonate 24, BUN 12, creatinine 0.8, glucose 217, hemoglobin A1c 7.7, calcium 9, total bilirubin 0.6, AST 30, ALT 28, alkaline phosphatase 91, troponin less than 0.0120, total protein 7.4, albumin 4.6, triglycerides 229, cholesterol 105, LDL 58, HDL 31. UA: Specific gravity 1.048, pH 5, otherwise negative. CT head: No evidence subacute intracranial hemorrhage, intracranial mass effect or midline shift. CTA head is negative. Chest x-ray: No focal consolidation. MRI of the brain done on 03/20/2017, shows multiple chronic appearing lacunar type infarcts scattered about the deep ends of cortical white matter including the superior base of nuclear howell radiata junctions. Carotid Doppler negative. Cervical spine CT done in 2017 shows multilevel cervical spondylosis contrary to the mid and inferior levels and appears moderate to severe, but anterior rather than posterior. No significant body central canal stenosis, mild right C6 and C7 root foraminal stenosis. Lumbar spine CT shows mild multilevel degenerative disk disease. Echocardiogram done on 03/19/2018 shows EF of 60% to 65%; no pericardial effusion and no wall motion abnormalities noted. ASSESSMENT AND PLAN: A middle-aged male with history of hypertension, hyperlipidemia, diabetes mellitus, anxiety disorder, who has been under a lot of stress recently, who had multiple visits to the emergency department and last admission was on 03/19/2017 for similar symptoms of left upper extremity numbness and heaviness with left-sided facial numbness and weakness. All the workup done about a week ago was negative. The patient returning to the emergency department with similar symptoms and the patient is being admitted for further evaluation and management. 1. Recurrent symptoms of left upper extremity numbness and heaviness with left-sided facial numbness, rule out transient ischemic attack versus cerebrovascular accident, rule out cervical radiculopathy causing these symptoms, rule out cardiac causes. 2. Hypertension, uncontrolled. 3. Diabetes mellitus, uncontrolled. 4. Hyperlipidemia. 5. Anxiety disorder. PLAN: The patient is being admitted to telemetry. We will do neuro checks, do serial cardiac enzymes, check cervical spine MRI. Neurology is contacted from the ED. Neurology is making arrangements for possible loop recorder insertion by Electrophysiology. We will continue with his home medications of lisinopril 20 mg daily, Coreg 6.25 mg p.o. b.i.d., Plavix 75 mg p.o. daily, aspirin 81 mg daily, metformin 1000 mg p.o. b.i.d. and Januvia 50 mg p.o. daily. We will do Accu-Chek before meals and at bedtime with sliding scale coverage. I will adjust his medications as needed. Follow up with Neurology. We will add further recommendations as his clinical course progresses. Marcos Montaño MD
--- NOTE | 2018-03-27 02:15 | CON ---
DATE: 03/26/2018 LOCATION: Cardiac Electrophysiology at [facility]. CONSULT SERVICE: Clinical cardiac electrophysiology. PHYSICIAN PERFORMING CONSULT: Jasbir Plata MD PHYSICIAN REQUESTING CONSULT: Mehdi Braga MD REASON FOR CONSULTATION: Cryptogenic stroke. HISTORY OF PRESENT ILLNESS: Mr. Abundio Nathan is a very pleasant 57-year-old male with a history of hypertension, diabetes, and recent diagnosis of cryptogenic stroke (chronic small lacunar infarcts noted on cardiac MRI) with a few presentations with left-sided weakness who presents again today with similar symptoms. Notably, the patient has recently been discharged from the hospital with an extensive workup including head CT, brain MRI and MRA, carotid ultrasound, as well as echocardiography. All of these results have been unremarkable with the exception of the lacunar infarct findings. He presents today with similar visitation of some of these symptoms, which is now much improved. Over the course of his presentation and hospitalization this time as well as in the past, there has been no evidence of atrial arrhythmia. His presenting EKG demonstrated normal sinus rhythm with normal antegrade conduction and narrow QRS. Historically, the patient said that he has been bothered by these symptoms over the course of the last several months with the initial insult, he tells me. He has been compliant with his medications. SOCIAL HISTORY: In terms of his social situation, the patient says he has been under a fair amount of stress. He is in the middle of a legal au in his [place] country [place] pertaining to a property that he owns and the potential for government seizure. As such, he is under a fair amount of stress. He does not smoke and formally used tobacco. He does not drink alcohol at all. No drugs. FAMILY HISTORY: In terms of family history, it is essentially noncontributory. MEDICATIONS: Reviewed. REVIEW OF SYSTEMS: A comprehensive 10-point review of systems was performed and notable for what was seen above. PHYSICAL EXAMINATION: VITAL SIGNS: The patient's blood pressure is 143/78, heart rate of 79, and respiratory rate of 14. GENERAL: The patient is alert, oriented, and conversant. NECK: Supple. PULMONARY: Lungs are clear anterior. CARDIOVASCULAR: Regular. S1 and S2. No murmurs. GASTROINTESTINAL: Abdomen is soft. EXTREMITIES: No edema. SKIN: No rashes. PSYCHIATRIC: Normal affect. LABORATORY DATA: Reviewed. ASSESSMENT AND PLAN: Mr. Abundio Nathan is presenting with possibly visitation of his prior neurologic insults as he has clearly demonstrated lacunar infarcts in the past. His symptoms have stabilized since his admission. From an electrophysiology perspective, it is reasonable to offer long-term monitoring for atrial arrhythmia and atrial fibrillation in particular. Certainly, there is a strong correlation between atrial fibrillation and stroke development and risk. I discussed this at length with the patient. Of the options available, the most appropriate in this setting and potentially cost effective based on recent evaluations, is insertion of a loop recorder. I discussed the rationale, the procedure, the risks and the benefits at length with the patient. The benefits include and are not limited to bleeding and infection. He understands these and is willing to proceed. Thank you very much for allowing me to participate in the care of this patient. Jasbir Plata MD cc: Mehdi Braga MD
--- NOTE | 2018-03-27 02:24 | OP ---
PROCEDURE DATE: 03/26/2018 PROCEDURE: Insertion of a Medtronic Reveal LINQ, LNQ11, serial #[id number] loop recorder. PHYSICIAN PERFORMING PROCEDURE: Jasbir Plata MD REFERRING PHYSICIAN: Mehdi Braga MD PRE-PROCEDURE DIAGNOSIS: Cryptogenic stroke. POSTPROCEDURE DIAGNOSIS: Cryptogenic stroke. OPERATIVE DETAILS: After informed consent was obtained, the patient was brought back to the electrophysiology laboratory. IV Ancef was administered. After appropriate sterile prep and drape, 1% lidocaine was infiltrated into the skin, two fingerbreadths to the left of the fourth intercostal midline space along the sternum. The [employer] incision tool was utilized to make a small incision, and the Medtronic plunger was utilized to insert the loop recorder into the newly created space. Manual pressure and a small amount of electrocautery was utilized to achieve hemostasis. The incision was covered with Steri-Strips and then ultimately with Telfa and Tegaderm. COMPLICATIONS: None. ESTIMATED BLOOD LOSS: 0 mL. IMPRESSION: Successful insertion of Medtronic loop recorder, indication is for cryptogenic stroke. POSTPROCEDURE INSTRUCTIONS: 1. The patient is stable for discharge from electrophysiology perspective. 2. No further antibiotics needed. 3. Do not get the incision wet for 3 days. 4. Take off the top dressing in 3 days. 5. Steri-Strips will fall off naturally in 2 weeks. 6. Follow up with Dr. Jasbir Plata in the [place] electrophysiology office in 2 weeks, call [phone] for appointment. Jasbir Plata MD
[2018-03-27] MEDS: Sodium Chloride 0.9% 1,000 ML IV SCH ×2 (02:32→13:35)
[2018-03-27] MEDS: (Novolin R) Insulin Human Regular 100 units/ml vial SC SCH ×4 (07:51→22:11)
--- NOTE | 2018-03-27 09:59 | CP.PCM.PN ---
Subjective - Date & Time of Evaluation Date of Evaluation: 03/27/18 Time of Evaluation: 09:59 - Subjective Subjective: Progress note dictated #[id number] Objective - Vital Signs/Intake and Output Vital Signs (last 24 hours): Temp Pulse Resp BP Pulse Ox 97.7 F 96 H 20 153/98 H 97 03/27/18 07:52 03/27/18 08:18 03/27/18 07:52 03/27/18 07:52 03/27/18 08:18 Intake and Output: 03/27/18 03/27/18 06:59 18:59 Intake Total 1000 Balance 1000 - Medications Medications: Current Medications Alprazolam (Xanax) 0.5 mg PO Q8H [facility] Last Admin: 03/27/18 07:04 Dose: 0.5 mg Aspirin (Ecotrin) 81 mg PO DAILY [facility] Last Admin: 03/27/18 09:25 Dose: 81 mg Carvedilol (Coreg) 6.25 mg PO BID [facility] Last Admin: 03/27/18 09:25 Dose: 6.25 mg Clopidogrel Bisulfate (Plavix) 75 mg PO DAILY [facility] Last Admin: 03/27/18 09:25 Dose: 75 mg Sodium Chloride (Sodium Chloride 0.9%) 1,000 mls @ 100 mls/hr IV .Q10H [facility] Last Admin: 03/27/18 02:32 Dose: 100 mls/hr Insulin Human Regular (Novolin R) 0 unit SC [facility]; Protocol Last Admin: 03/27/18 07:51 Dose: Not Given Lisinopril (Zestril) 20 mg PO DAILY [facility] Last Admin: 03/27/18 09:25 Dose: 20 mg [facility] Last Admin: 03/27/18 08:49 Dose: 1,000 mg Ondansetron HCl (Zofran Inj) 4 mg IVP Q8 PRN PRN Reason: nausea Last Admin: 03/26/18 20:59 Dose: 4 mg Pneumococcal Polyvalent Vaccine (Pneumovax 23 Vaccine) 0.5 ml IM .ONCE ONE Stop: 03/27/18 10:11 Rosuvastatin Calcium (Crestor) 10 mg PO HS [facility] Last Admin: 03/26/18 21:52 Dose: 10 mg Sitagliptin Phosphate (Januvia) 50 mg PO DAILY [facility] Last Admin: 03/27/18 09:25 Dose: 50 mg Temazepam (Restoril) 30 mg PO HS PRN PRN Reason: Insomnia - Labs Labs: 03/26/18 06:47 03/26/18 06:47 PT 12.2 SECONDS (9.7-12.2) 03/26/18 06:47 INR 1.1 03/26/18 06:47 APTT 34 SECONDS (21-34) 03/26/18 06:47
[2018-03-27] MEDS ORDERED: Pneumococcal 23-Valent Vaccine IM ONE (10:10)
--- NOTE | 2018-03-27 21:57 | PN ---
DATE: 03/27/2018 SUBJECTIVE: The patient seen, the patient is sleepy, currently on Xanax 0.5 every 8, he said for the first time in months he slept. Patient's blood pressure also is improving. He said that he was less worried about his medical problems and he said he was sleeping much better. The patient is advised to continue taking Xanax as ordered. PHYSICAL EXAMINATION: VITAL SIGNS: Temperature 98, pulse 82, blood pressure 155/94, respirations 20, and oxygen saturation is 95%. REVIEW OF SYSTEMS: GENERAL: The patient is drowsy, but arousable, oriented x3. Seen in his room resting. SKIN: No diaphoresis. HEENT: No headache. No dizziness. NECK: Supple. RESPIRATORY: No dyspnea. CARDIOVASCULAR: No chest pain. GASTROINTESTINAL: No nausea or vomiting. EXTREMITIES: Left-sided weakness improving. The patient has been followed by Dr. Braga, neurologist. NEUROLOGIC: Drowsy, but oriented x3. GENITOURINARY: No urinary problems. MENTAL STATUS EXAMINATION: Well-developed male, who looks stated age, oriented x3. Speech is spontaneous. Feeling drowsy from the medication. Affect is reactive. Speech is spontaneous. Mood is calmer. Thought process is coherent. Thought content, the patient state he was able to sleep last night and wanted to sleep some more. No psychosis. No suicidal ideation. Attention and memory seem to be fair. Insight and judgment is fair. Impulse control is fair. IMPRESSION: Depressive disorder, anxiety disorder, and transient ischemic attack. PLAN AND RECOMMENDATIONS: The patient seen. Meds reviewed. Continue with Xanax 0.5 mg every 8 and Restoril 30 mg at bedside. The patient seems to be doing well only with Xanax 0.5 every 8 for now. Continue treatment plan as outlined. Marco Antonio Kendall MD
[2018-03-28] MEDS: Sodium Chloride 0.9% 1,000 ML IV SCH ×2 (00:34→09:47)
[2018-03-28] MEDS: (Novolin R) Insulin Human Regular 100 units/ml vial SC SCH ×4 (08:30→22:11)
[2018-03-28] MEDS: Enoxaparin 40 mg Syringe SC SCH (09:49)
--- NOTE | 2018-03-28 15:25 | CP.PCM.PN ---
Subjective - Date & Time of Evaluation Date of Evaluation: 03/28/18 Time of Evaluation: 15:15 - Subjective Subjective: Progress note dictated #[id number] Objective - Vital Signs/Intake and Output Vital Signs (last 24 hours): Temp Pulse Resp BP Pulse Ox 98.1 F 94 H 20 148/94 H 96 03/28/18 07:00 03/28/18 09:00 03/28/18 07:00 03/28/18 07:00 03/28/18 09:00 - Medications Medications: Current Medications Alprazolam (Xanax) 0.5 mg PO Q8H [facility] Last Admin: 03/28/18 14:28 Dose: 0.5 mg Aspirin (Ecotrin) 81 mg PO DAILY [facility] Last Admin: 03/28/18 09:46 Dose: 81 mg Carvedilol (Coreg) 12.5 mg PO BID [facility] Clopidogrel Bisulfate (Plavix) 75 mg PO DAILY [facility] Last Admin: 03/28/18 09:46 Dose: 75 mg Enoxaparin Sodium (Lovenox) 40 mg SC DAILY [facility] Last Admin: 03/28/18 09:49 Dose: 40 mg Sodium Chloride (Sodium Chloride 0.9%) 1,000 mls @ 100 mls/hr IV .Q10H [facility] Last Admin: 03/28/18 09:47 Dose: 100 mls/hr Insulin Human Regular (Novolin R) 0 unit SC [facility]; Protocol Last Admin: 03/28/18 11:54 Dose: Not Given Lisinopril (Zestril) 20 mg PO DAILY [facility] Last Admin: 03/28/18 09:46 Dose: 20 mg Metformin [facility]) [facility] Last Admin: 03/28/18 08:30 Dose: 1,000 mg Ondansetron HCl (Zofran Inj) 4 mg IVP Q8 PRN PRN Reason: nausea Last Admin: 03/26/18 20:59 Dose: 4 mg Pneumococcal Polyvalent Vaccine (Pneumovax 23 Vaccine) 0.5 ml IM .ONCE ONE Stop: 03/29/18 10:01 Rosuvastatin Calcium (Crestor) 10 mg PO HS [facility] Last Admin: 03/27/18 21:23 Dose: 10 mg Sitagliptin Phosphate (Januvia) 50 mg PO DAILY [facility] Last Admin: 02/03/19 09:46 Dose: 50 mg Temazepam (Restoril) 30 mg PO HS PRN PRN Reason: Insomnia - Labs Labs: 03/26/18 06:47 03/26/18 06:47 PT 12.2 SECONDS (9.7-12.2) 03/26/18 06:47 INR 1.1 03/26/18 06:47 APTT 34 SECONDS (21-34) 03/26/18 06:47
--- NOTE | 2018-03-28 21:06 | PN ---
DATE: 03/28/2018 SUBJECTIVE: The patient seen. The patient continues to clinically with improvement of sleep. The patient tolerating Xanax 0.5 mg every 8 hours. He said he is sleeping much better. He is less anxious and the weakness in his left side has improved. The patient stated he was able to go to the bathroom without any difficulties. He has been compliant with meds and more optimistic with his recovery. His blood pressure also is much improved. PHYSICAL EXAMINATION VITAL SIGNS: Temperature 98.1, pulse 94, blood pressure 148/94, respirations 20, oxygen saturation 96%. GENERAL: The patient is alert, oriented x3. Seen in his room resting in hospital gown and talking in the phone. He said he feels much better. SKIN: No diaphoresis. HEENT: No headache. No dizziness. NECK: Supple. RESPIRATORY: No dyspnea. CARDIOVASCULAR: No chest pain. GASTROINTESTINAL: He is eating well. EXTREMITIES: Weakness in the left side of his body has improved. NEUROLOGIC: Alert and oriented x3. GENITOURINARY: No urinary complaints. MENTAL STATUS EXAMINATION: Well-developed male, who looks stated age, alert and oriented x3. Mood is much wider, less anxious, less somatic. Affect is reactive. Speech spontaneous. Thought process coherent. Thought content, the patient states that he is sleeping much better in months. No psychosis. No suicidal or homicidal ideation. Attention and memory seem to be fair. Insight and judgment is fair. Impulse control is fair. IMPRESSION: Anxiety disorder, depressive disorder, mood disorder, history of transient ischemic attack. PLAN AND RECOMMENDATIONS: The patient seen. Meds reviewed. Continue present management. Continue Xanax 0.5 mg every 8 hours and Restoril 30 mg at bedtime p.r.n. Note, the patient has not been using the Restoril. He said he is sleeping much better. Neurology followup as outlined. Marco Antonio Kendall MD
--- NOTE | 2018-03-28 23:06 | PN ---
DATE: 03/28/2018 SUBJECTIVE: The patient was seen and examined at bedside. The patient is feeling much better. Denies any symptoms of numbness or heaviness on the left side of the face or the arm. Denies any new complaints. PHYSICAL EXAMINATION: GENERAL: A middle-aged male lying in bed in no acute distress. VITAL SIGNS: Blood pressure 155/99, pulse 77, respiration 20, temperature 98.2 degrees Fahrenheit, O2 sat 99% on room air. HEENT: Pupils equal, round, reactive to light and accommodation. Extraocular muscles intact. No icterus. No pallor. No oral thrush. No pharyngeal congestion. NECK: Supple. No JVD. LUNGS: Bilateral vesicular breath sounds. No wheezing. No rhonchi. CARDIOVASCULAR: S1, S2 present. Regular. ABDOMEN: Soft and nontender. Bowel sounds present. No guarding. No rigidity. No rebound tenderness noted. SAND CASTER APPRENTICE: Alert, awake, oriented x3. No focal deficits noted. EXTREMITIES: No edema. Palpable peripheral pulses. MEDICATIONS: Include Xanax 0.5 mg p.o. every 8 hours, aspirin 81 mg daily, Coreg 12.5 mg p.o. b.i.d., Plavix 75 mg daily, Lovenox 40 mg subcu daily, Zestril 20 mg p.o. daily, metformin 1000 mg p.o. b.i.d., Zofran 4 mg as needed, Crestor 10 mg p.o. h.s., Januvia 50 mg daily, Restoril 30 mg p.o. at bedtime p.r.n. LABORATORY DATA: Accu-Cheks 140, 124, 192, 142, 102. ASSESSMENT AND PLAN: A middle-aged male with history of hypertension, hyperlipidemia, diabetes mellitus, anxiety disorder, admitted to left-sided numbness, heaviness with multiple episodes. The patient's symptoms resolved. The patient underwent loop recorder placement, but the patient did not have echocardiogram with bubble study done, awaiting for the echo to be done and clearance from Neurology. The patient is otherwise hemodynamically stable, and the echo done and cleared by Neurology, we will plan discharging the patient home. Continue with Xanax and Restoril as per Psychiatry. Blood pressure is slightly high. Coreg increased to 12.5 mg p.o. bi.d. Accu-Cheks are fair. We will monitor blood pressure and Accu-Cheks. We will add further recommendations as his clinical course progresses. Marcos Montaño MD
--- NOTE | 2018-03-29 07:03 | PN ---
DATE: 03/27/2018 SUBJECTIVE: The patient was seen and examined at bedside. The patient denies any symptoms of numbness or heaviness in the face or upper extremities, claims that Xanax he got last night made him more relaxed and he slept well. He is feeling much better, denies any other complaints. PHYSICAL EXAMINATION: GENERAL: Middle-aged male, lying in bed, in no acute distress. VITAL SIGNS: Blood pressure 155/94, pulse 82, respirations 20, temperature 98 degrees Fahrenheit, O2 sat 95% on room air. HEENT: Pupils are equal, round, and reacting to light and accommodation. Extraocular muscles intact. No icterus. No pallor. No oral thrush. No pharyngeal congestion. NECK: Supple. No JVD. LUNGS: Bilateral vesicular breath sounds. No wheezing. No rhonchi. CVS: S1 and S2 present, regular. ABDOMEN: Soft, nontender. Bowel sounds present. No guarding. No rigidity. No rebound tenderness noted. SAWMILL SUPERVISOR: Alert, awake, oriented x3. No focal deficits noted. EXTREMITIES: No edema. Palpable peripheral pulses. MEDICATIONS: Include Xanax 0.5 mg p.o. every 8 hours, aspirin 81 mg daily, Coreg 6.25 mg p.o. b.i.d., Plavix 75 mg daily, Lovenox 40 mg subcu daily, Zestril 20 mg daily, metformin 1000 mg p.o. b.i.d., Zofran as needed, Crestor 10 mg p.o. at bedside, Januvia 50 mg daily, IV fluids 100 mL per hour, Restoril 30 mg p.o. at bedside p.r.n., Accu-Cheks 123, 136, 146, 179. Cardiac enzymes x3 negative. TSH is 4.38. CT cervical spine consistent with degenerative disease. ASSESSMENT AND PLAN: Middle-aged male with history of hypertension, hyperlipidemia, diabetes mellitus, anxiety disorder, multiple admissions to the hospital with left upper extremity numbness and heaviness. The patient underwent loop recorder placement yesterday by student affairs vice president, Neurology consult, EP consult, and Psychiatric consult appreciated. The patient is started on Xanax and Restoril p.r.n. His diabetic medications are being adjusted. His blood pressure is slightly high. We will monitor blood pressure closely. We will adjust his antihypertensives as needed. Neurology recommended echocardiogram with bubble study, which will not be done until Thursday as per the echo blood and plasma laboratory assistant. We will continue with other current medications. We will follow up with Neurology. His echo can be done as an outpatient and cleared by Neurology. We will plan discharging the patient home. We will continue with current medication. Marcos Montaño MD
[2018-03-29 07:45] LABS: BASO % 0.6 % (0.0-2.0); EOS # 0.3 K/uL (0.0-0.7); EOS % 4.4 % (0.0-4.0); HEMOGLOBIN 14.1 g/dL (12.0-18.0); LYMPH % 31.7 % (20.0-40.0); MEAN CELL VOLUME 85.8 fL (80.0-94.0); MEAN PLATELET VOLUME 8.4 fL (7.2-11.7); MONO # 0.4 K/uL (0.0-0.8); MONO % 6.8 % (0.0-10.0); NEUT # 3.5 K/uL (1.8-7.0); NEUT % 56.5 % (50.0-75.0); NRBC % 0.1 % (0.0-2.0); RBC 4.68 Mil/uL (4.40-5.90); RED CELL DISTRIBUTION WIDTH 13.1 % (11.5-14.5); WHITE BLOOD COUNT 6.2 K/uL (4.8-10.8)
[2018-03-29] MEDS: (Novolin R) Insulin Human Regular 100 units/ml vial SC SCH ×4 (08:01→21:29)
[2018-03-29 08:05] LABS: ALB/GLOB RATIO 1.7 (1.0-2.1); ALBUMIN 4.3 g/dL (3.5-5.0); ALT/SGPT 27 U/L (21-72); AST/SGOT 31 U/L (17-59); BLOOD UREA NITROGEN 14 mg/dL (9-20); GFR NON-AFRICAN AMERICAN > 60
[2018-03-29] MEDS: Enoxaparin 40 mg Syringe SC SCH (09:37)
[2018-03-29] MEDS ORDERED: Pneumococcal 23-Valent Vaccine IM ONE (10:00)
--- NOTE | 2018-03-29 11:48 | CP.PCM.PN ---
Subjective - Date & Time of Evaluation Date of Evaluation: 03/29/18 Time of Evaluation: 11:44 - Subjective Subjective: Neuro Follow-Up Note: Mr. Nathan was evaluated this morning at bedside. He states that he feels well, though, anxious. Admits to personal life stressors that may be affecting him. He denies h/a, dizziness, visual changes, chest pain, palpitations, sob, cough, abd pain, n/v/d. Objective - Vital Signs/Intake and Output Vital Signs (last 24 hours): Temp Pulse Resp BP Pulse Ox 98.4 F 74 18 150/90 96 03/29/18 08:00 03/29/18 08:00 03/29/18 08:00 03/29/18 09:38 03/29/18 08:00 - Medications Medications: Current Medications Alprazolam (Xanax) 0.5 mg PO Q8H [facility] Last Admin: 03/29/18 05:59 Dose: 0.5 mg Aspirin (Ecotrin) 81 mg PO DAILY [facility] Last Admin: 03/29/18 09:38 Dose: 81 mg Carvedilol (Coreg) 12.5 mg PO BID [facility] Last Admin: 03/29/18 09:38 Dose: 12.5 mg Clopidogrel Bisulfate (Plavix) 75 mg PO DAILY [facility] Last Admin: 03/29/18 09:38 Dose: 75 mg Enoxaparin Sodium (Lovenox) 40 mg SC DAILY [facility] Last Admin: 03/29/18 09:37 Dose: 40 mg Influenza Virus Vaccine (Flucelvax Quad [id number] Syr) 60 mcg IM .ONCE ONE Stop: 03/30/18 10:01 Insulin Human Regular (Novolin R) 0 unit SC [facility]; Protocol Last Admin: 03/29/18 08:01 Dose: Not Given Lisinopril (Zestril) 20 mg PO DAILY [facility] Last Admin: 03/29/18 09:41 Dose: 20 mg Metformin [facility] ([facility]) [facility] Last Admin: 03/29/18 07:59 Dose: 1,000 mg Ondansetron HCl (Zofran Inj) 4 mg IVP Q8 PRN PRN Reason: nausea Last Admin: 03/26/18 20:59 Dose: 4 mg Rosuvastatin Calcium (Crestor) 10 mg PO [facility] Last Admin: 03/28/18 21:50 Dose: 10 mg Sitagliptin Phosphate (Januvia) 50 mg PO DAILY [facility] Last Admin: 03/29/18 09:37 Dose: 50 mg Temazepam (Restoril) 30 mg PO HS PRN PRN Reason: Insomnia - Labs Labs: 03/29/18 07:29 03/29/18 07:29 PT 12.2 SECONDS (9.7-12.2) 03/26/18 06:47 INR 1.1 03/26/18 06:47 APTT 34 SECONDS (21-34) 03/26/18 06:47 - Constitutional Appears: Well, Non-toxic, No Acute Distress - Head Exam Head Exam: ATRAUMATIC, NORMAL INSPECTION, NORMOCEPHALIC - Eye Exam Eye Exam: EOMI, Normal appearance Pupil Exam: NORMAL ACCOMODATION, PERRL - ENT Exam ENT Exam: Mucous Membranes Moist - Neck Exam Neck Exam: Full ROM, Normal Inspection - Respiratory Exam Respiratory Exam: NORMAL BREATHING PATTERN - Extremities Exam Extremities Exam: Full ROM. absent: Calf Tenderness, Pedal Edema - Neurological Exam Neurological Exam: Alert, Awake, CN II-XII Intact, Normal Gait, Oriented x3, Reflexes Normal Neuro motor strength exam: Left Upper Extremity: 5, Right Upper Extremity: 5, Left Lower Extremity: 5, Right Lower Extremity: 5 Additional comments: Speech clear, fluid No motor or sensory deficits noted No tremors Gait steady---pt observed ambulating in room - Psychiatric Exam Psychiatric exam: Normal Affect, Normal Mood - Skin Skin Exam: Normal Color Assessment and Plan (1) TIA (transient ischemic attack) Assessment & Plan: Imaging reviewed: -MRI Brain (03/20/18; last admission): Mild chronic periventricular white matter ischemic changes seen extending peripherally into the deep white matter both cerebral hemispheres. In addition, there are multiple chronic appearing lacunar type infarcts scattered about the deep and subcortical white matter including the superior basal nuclei/coronal radiata junctions. Questionable tiny dilated perivascular space or lacunar type infarct left cerebral peduncle. Slightly low lying cerebellar tonsils. -CT C-Spine (03/26/18): Moderate degenerative disc changes. Multilevel posterior osteophyte bulging disc which resulting in mild spinal stenosis more prominent at C5-C6 and C6- C7. Mild right neural foraminal narrowing at C5-C6 and C6-C7 noted. -CTA head/neck (03/26/18): No evidence of arterial occlusion or critical stenosis in the neck and head. No significant interval changes noted since the prior study. -CT head (03/26/18): No evidence of acute intracranial hemorrhage intracranial collection mass effect or midline shift. No CT evidence of acute territorial infarction. -ECHO with Bubble done; results pending. Please notify cardiology and neurology if abnormal. If Bubble study is normal, he may be cleared for d/c from neurology perspective. -LINQ was placed by EP; pt is to follow up with Dr. Jasbir Plata in [place] EP office in 2 weeks, call [phone] for appointment -Continue Plavix 75 mg daily along with Aspirin 81 mg daily for 3 weeks, then continue only Plavix 75 mg daily indefinitely. Please provide Rx for these upon d/c if pt does not have them already. -Continue statin to maintain LDL<70---provide Rx for this upon d/c if pt does not already have. -Please have pt f/u with Dr. Braga in the office within 1 month. Pt believes that he has a f/u appt for 04/05/18. Thank you for allowing us to participate in this pt's care. Reconsult prn. Case discussed with Dr. Hoover Status: Acute
--- NOTE | 2018-03-29 13:58 | CP.PCM.PN ---
Subjective - Date & Time of Evaluation Date of Evaluation: 03/29/18 Time of Evaluation: 13:58 - Subjective Subjective: Progress note dictated #[id number] Objective - Vital Signs/Intake and Output Vital Signs (last 24 hours): Temp Pulse Resp BP Pulse Ox 98.4 F 74 18 150/90 96 03/29/18 08:00 03/29/18 08:00 03/29/18 08:00 03/29/18 09:38 03/29/18 08:00 - Medications Medications: Current Medications Alprazolam (Xanax) 0.5 mg PO Q8H [facility] Last Admin: 03/29/18 05:59 Dose: 0.5 mg Aspirin (Ecotrin) 81 mg PO DAILY [facility] Last Admin: 03/29/18 09:38 Dose: 81 mg Carvedilol (Coreg) 12.5 mg PO BID [facility] Last Admin: 03/29/18 09:38 Dose: 12.5 mg Clopidogrel Bisulfate (Plavix) 75 mg PO DAILY [facility] Last Admin: 03/29/18 09:38 Dose: 75 mg Enoxaparin Sodium (Lovenox) 40 mg SC DAILY [facility] Last Admin: 03/29/18 09:37 Dose: 40 mg Influenza Virus Vaccine (Flucelvax Quad [id number] Syr) 60 mcg IM .ONCE ONE Stop: 03/30/18 10:01 Insulin Human Regular (Novolin R) 0 unit SC [facility]; Protocol Last Admin: 03/29/18 11:52 Dose: Not Given Lisinopril (Zestril) 20 mg PO DAILY [facility] Last Admin: 03/29/18 09:41 Dose: 20 mg [facility] Admin: 03/29/18 07:59 Dose: 1,000 mg Ondansetron HCl (Zofran Inj) 4 mg IVP Q8 PRN PRN Reason: nausea Last Admin: 03/26/18 20:59 Dose: 4 mg Rosuvastatin Calcium (Crestor) 10 mg PO HS [facility] Last Admin: 03/28/18 21:50 Dose: 10 mg Sitagliptin Phosphate (Januvia) 50 mg PO DAILY [facility] Last Admin: 03/29/18 09:37 Dose: 50 mg Temazepam (Restoril) 30 mg PO HS PRN PRN Reason: Insomnia - Labs Labs: 03/29/18 07:29 03/29/18 07:29 PT 12.2 SECONDS (9.7-12.2) 03/26/18 06:47 INR 1.1 03/26/18 06:47 APTT 34 SECONDS (21-34) 03/26/18 06:47
[2018-03-29 17:44] VITALS: RESP 20
--- NOTE | 2018-03-29 20:16 | PN ---
DATE: 03/29/2018 SUBJECTIVE: The patient was seen. The patient is clinically much improved with taoism of his sleep. He says he likes the Xanax, it is making him calm. The patient reports that he is walking much better. The left-sided weakness has improved. He is less anxious and willing to go home. He may benefit from outpatient PT but psych menendez he is stable. The patient was advised to continue taking Xanax and apply for disability. 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 PHYSICAL EXAMINATION: VITAL SIGNS: Temperature is 98.4, heart rate 74, blood pressure 150/90, respirations 18, oxygen saturation is 96%. REVIEW OF SYSTEMS: GENERAL: He is alert and oriented x 3, much improved, looks much calmer, was talking on the phone. SKIN: No diaphoresis. HEENT: No headache. No dizziness. NECK: Supple. RESPIRATORY: No dyspnea. CARDIOVASCULAR: No chest pain. GASTROINTESTINAL: He is eating. EXTREMITIES: Ambulatory. No weakness. NEUROLOGIC: Alert and oriented x3, cognitively intact. GENITOURINARY: No urinary problems. MENTAL STATUS EXAMINATION: A well-developed male who looks stated age, alert and oriented x3. Mood is much calmer. He is rested. Affect is reactive. Speech is spontaneous. Thought process coherent. Thought content, the patient has no psychosis. No suicidal or homicidal ideation. He is sleeping much better. He states he slept mostly while he is in the hospital, was given Xanax. He has been compliant with his medications, says the medicine is helping him. No psychosis. No suicidal or homicidal ideation. Attention and memory seem to be fair. Insight and judgment are fair. Impulse control is fair. IMPRESSION: History of depression, anxiety as well as chronic insomnia, much improved; history of transient ischemic attack. PLAN AND RECOMMENDATIONS: The patient was seen. Meds reviewed. Psych menendez, he is stable for discharge to home once medically cleared. The patient was given Xanax 0.5 mg every 8 hours x10 days and to follow up with his PMD. 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 Marco Antonio Kendall MD [facility]
--- NOTE | 2018-03-29 23:53 | PN ---
DATE: 03/29/2018 SUBJECTIVE: The patient was seen and examined at bedside. The patient is feeling much better. Denies any new complaints. All other systems reviewed and were found to be negative. PHYSICAL EXAMINATION: GENERAL: Middle-aged male, lying in bed, in no acute distress. VITAL SIGNS: Blood pressure 149/100, pulse 79, respiration 20, temperature 97.5 degrees Fahrenheit, and O2 sat 96% on room air. HEENT: Pupils equal, round, reactive to light and accommodation. Extraocular muscles intact. No icterus. No pallor. No oral thrush. No pharyngeal congestion. NECK: Supple. No JVD. LUNGS: Bilateral vesicular breath sounds. No wheezing. No rhonchi. CARDIOVASCULAR SYSTEM: S1 and S2 present, regular. ABDOMEN: Soft and nontender. Bowel sounds present. No guarding. No rigidity. No rebound tenderness noted. CENTRAL NERVOUS SYSTEM: Alert, awake, oriented x3. No focal deficits noted. EXTREMITIES: No edema. Palpable peripheral pulses. MEDICATIONS: Include Xanax 0.5 mg p.o. every 8 hours, aspirin 81 mg daily, Coreg 12.5 mg p.o. b.i.d., Plavix 75 mg daily, Lovenox 40 mg subcu daily, Zestril 20 mg daily, metformin 1000 mg p.o. b.i.d., Crestor 10 mg p.o. at bedtime., Januvia 50 mg daily, temazepam 30 mg p.o. at bedtime. LABORATORY DATA: Labs on this morning: WBC 6.2, hemoglobin 14.1, hematocrit 40.2, and platelets 202. Sodium 136, potassium 4, chloride 103, bicarb 23, BUN 14, creatinine 0.8, glucose 169, calcium 9. LFTs within normal limits. ASSESSMENT AND PLAN: A middle-aged male with history of hypertension, hyperlipidemia, diabetes mellitus, anxiety disorder, depression, admitted multiple times with left-sided numbness, heaviness of the face and upper extremities with resolved symptoms. The patient underwent loop recorder placement by food beverage attendant. Neurology recommended echocardiogram with bubble study to rule out any cardiac causes. Echocardiogram was done only this morning, awaiting for the report, no report available as yet of 7:10 in the evening. Today, the patient cannot be discharged until the echocardiogram report is available. If echocardiogram is negative and the patient remains stable, we will plan discharging the patient home in the morning. The patient was instructed to follow up with PMD, Neurology, and with food beverage attendant in two weeks. Blood pressure is fairly controlled on current medication. We will adjust medication as needed. Continue with current diabetic medications. The patient is feeling much better with Xanax as recommended by Dr. Kendall. We will continue with current doses. Marcos Montaño MD
[2018-03-30] MEDS: (Novolin R) Insulin Human Regular 100 units/ml vial SC SCH ×2 (07:51→11:56)
[2018-03-30 08:19] VITALS: PULSE 81; TEMP 97.6; O2SAT 99
[2018-03-30] MEDS ORDERED: Influenza Vaccine 60 mcg/0.5 mL SYR (4YR UP) IM ONE (10:00)
--- NOTE | 2018-03-30 10:15 | CP.PCM.PN ---
Subjective - Date & Time of Evaluation Date of Evaluation: 03/30/18 Time of Evaluation: 10:15 - Subjective Subjective: Discharge summary dictated #[id number] Objective - Vital Signs/Intake and Output Vital Signs (last 24 hours): Temp Pulse Resp BP Pulse Ox 97.6 F 81 20 143/93 H 99 03/30/18 07:00 03/30/18 07:00 03/30/18 07:00 03/30/18 07:00 03/30/18 07:00 Intake and Output: 03/30/18 03/30/18 06:59 18:59 Intake Total 400 Balance 400 - Medications Medications: Current Medications Alprazolam (Xanax) 0.5 mg PO Q8H [facility] Last Admin: 03/30/18 05:51 Dose: 0.5 mg Aspirin (Ecotrin) 81 mg PO DAILY [facility] Last Admin: 03/29/18 09:38 Dose: 81 mg Carvedilol (Coreg) 12.5 mg PO BID [facility] Last Admin: 03/29/18 17:38 Dose: 12.5 mg Clopidogrel Bisulfate (Plavix) 75 mg PO DAILY [facility] Last Admin: 03/29/18 09:38 Dose: 75 mg Enoxaparin Sodium (Lovenox) 40 mg SC DAILY [facility] Last Admin: 03/29/18 09:37 Dose: 40 mg Insulin Human Regular (Novolin R) 0 unit SC [facility]; Protocol Last Admin: 03/30/18 07:51 Dose: Not Given Lisinopril (Zestril) 20 mg PO DAILY [facility] Last Admin: 03/29/18 09:41 Dose: 20 mg [facility] Last Admin: 03/30/18 08:04 Dose: 1,000 mg Ondansetron HCl (Zofran Inj) 4 mg IVP Q8 PRN PRN Reason: nausea Last Admin: 03/26/18 20:59 Dose: 4 mg Rosuvastatin Calcium (Crestor) 10 mg PO HS [facility] Last Admin: 03/29/18 21:22 Dose: 10 mg Sitagliptin Phosphate (Januvia) 50 mg PO DAILY [facility] Last Admin: 03/29/18 09:37 Dose: 50 mg Temazepam (Restoril) 30 mg PO HS PRN PRN Reason: Insomnia - Labs Labs: 03/29/18 07:29 03/29/18 07:29 PT 12.2 SECONDS (9.7-12.2) 03/26/18 06:47 INR 1.1 03/26/18 06:47 APTT 34 SECONDS (21-34) 03/26/18 06:47
[2018-03-30 10:18] VITALS: BP 163/97
[2018-03-30] MEDS: Enoxaparin 40 mg Syringe SC SCH (10:18)
--- NOTE | 2018-03-30 10:20 | CARD ---
APPROVED REPORT Date of service: 03/26/2018 EKG Measurement Heart [id number] <Conclusion> Normal sinus rhythm Normal ECG
--- NOTE | 2018-03-30 11:35 | CARD ---
APPROVED REPORT Date of service: 03/29/2018 EXAM: LIMITED Two-dimensional echocardiogram with contrast. INDICATION CVA/TIA Mitral Valve E/A ratio0.0 TDI E/Lateral E'0.0E/Medial E'0.0 <Conclusion> Lllimited ontrast study. There is no significant evidence of an intra-cardiac shunt.
--- NOTE | 2018-04-01 18:21 | PQF ---
PROVIDER RESPONSE TEXT: Dictated in discharge summary note. REVIEWER QUERY TEXT: TIA vs. CVA Rule out CVA is documented in the Medical Record. After completed work-up, please specify if conditio n was -- CVA ruled out (if so, please clarify definitive diagnosis) -- CVA aborted -- TIA (please specify cause including probable or suspected) -- Other, please specify The patient's Clinical Indicators include: DOCUMENTATION OF CRYPTOGENIC STROKE ALSO DOCUMENTATION OF TIA PLEASE CLARIFY FINAL DX CTA HEAD /NECK DONE INSERTION OF [employer] LOOP RECORDER ALSO DONE Query created by: Harini Thakkar on 04/01/2018 1:45 PM Electronically signed by: Marcos Montaño MD 04/01/2018 6:18 PM
--- NOTE | 2018-04-02 06:01 | DS ---
DISCHARGE DIAGNOSES: Hypertension, hyperlipidemia, diabetes mellitus, anxiety disorder, depression, status post possible transient ischemic attack with left-sided facial numbness and left upper extremity numbness and heaviness, status post loop recorder placement for further evaluation of possible cryptogenic stroke, echocardiogram with bubble study negative for any abnormalities. HISTORY OF PRESENT ILLNESS: Mr. Nathan is a 57-year-old male with past medical history of hypertension, hyperlipidemia, diabetes mellitus, anxiety disorder, following up with Dr. Annalisa Mckeon as primary care physician, recent admission to hospital with left-sided heaviness and numbness while at rest. Had all the workup done which was negative. Returning to the hospital with similar symptoms of left upper extremity heaviness and numbness. The patient was evaluated in the ED, and the patient was admitted for further evaluation. On the day of discharge, the patient was feeling much better. Denied any complaints of headache or dizziness. Denied any chest pain, shortness of breath or wheezing. Denied any nausea, vomiting, abdominal pain, diarrhea or constipation. Denied any urinary complaints. Denied any leg pain or leg cramps. Denied any other neurologic symptoms. All other systems reviewed and were found to be negative. PHYSICAL EXAMINATION: GENERAL: A middle-aged male, lying in bed, in no acute distress. VITAL SIGNS: Blood pressure 143/93, pulse 81, respirations 20, temperature 97.6 degrees Fahrenheit, O2 sats 99% on room air. HEENT: Pupils equal, round, reacting to light and accommodation. Extraocular muscles intact. No icterus. No pallor. No oral thrush. No pharyngeal congestion. NECK: Supple. No JVD. LUNGS: Bilateral vesicular breath sounds. No wheezing. No rhonchi. CARDIOVASCULAR SYSTEM: S1 and S2 present, regular. ABDOMEN: Soft, nontender. Bowel sounds present. No guarding. No rigidity. No rebound tenderness noted. CENTRAL NERVOUS SYSTEM: Alert, awake, oriented x3. No focal deficits noted. EXTREMITIES: No edema. Palpable peripheral pulses. LABORATORY DATA: Labs include: Accu-Cheks 114, 127, 122, 113, 132. WBC 6.2, hemoglobin 14.1, hematocrit 40.2, platelets 202. Sodium 136, potassium 4, chloride 103, bicarb 23, BUN 14, creatinine 0.8, glucose 169, calcium 9, phosphorus 3, magnesium 1.6. LFTs within normal limits. Cardiac enzymes x3 negative. CT head negative. CT angiogram of the head and neck negative. Cervical spine MRI consistent with moderate degenerative disk changes, multilevel posterior osteophyte bulging disk resulting in mild spinal stenosis, more prominent at C5-C6, C6-C7. HOSPITAL COURSE: The patient was admitted to the telemetry for possible TIA. The patient was evaluated by Neurology. The patient claims that he has not been taking aspirin at home, started taking Plavix only recently. The patient was advised to take both aspirin and Plavix on prior to discharge. The patient was restarted on aspirin and Plavix. The patient was evaluated by Neurology. Neurology recommended loop recorder which was done by seasonal package handler for further evaluation of any cryptogenic strokes. For his anxiety and depression, the patient was evaluated by Psychiatry. Dr. Kendall started the patient on Xanax and Restoril at night time which helped him significantly, and his symptoms resolved. He claims that he has not been as anxious as before. The patient underwent repeat echocardiogram with bubble study which was negative for any abnormalities or any intracardiac shunts. All the workup again remained negative. MRI of the C-spine consistent with multilevel degenerative disease. As the patient is otherwise hemodynamically stable and all his symptoms resolved, he is cleared by Neurology and Psychiatry. The patient is being discharged. Advised the patient to follow up with Neurology, seasonal package handler and primary care physician as outpatient for further evaluation of loop recorder. The patient understands the need for followup with all the consultants and agrees to follow up with his PMD. CONDITION UPON DISCHARGE: The patient was alert, awake, oriented x3 and hemodynamically stable at the time of discharge. DISCHARGE INSTRUCTIONS: Follow up with PMD. Follow up with Neurology. Follow up with Electrophysiology. DISCHARGE MEDICATIONS: Lipitor 20 mg daily, metformin 1000 mg p.o. b.i.d., Januvia 50 mg daily, lisinopril 20 mg daily, Plavix 75 mg daily, Coreg 12.5 mg p.o. b.i.d., aspirin 81 mg daily for three weeks, and Xanax 0.5 mg p.o. t.i.d. as given by Psychiatry. Recommended to follow up with Psychiatry as outpatient. DISCHARGE DIET: Low-sodium, low-cholesterol, 1800-calorie ADA diet. ACTIVITY: As tolerated. Marcos Montaño MD [facility] # [id number]
== END 2018-03-30 13:40 | disposition home or self-care (01) | DRG 42 ==
LOC: C.ER 06:30 → C.6T 08:41 → OBSVTOIN 03-28 15:22 → C.6T 03-29 16:50
PROVIDERS: ADMIT Internal Medicine; ATTEND Internal Medicine
PROC: 0JH632Z Insertion of Monitoring Device into Chest Subcutaneous Tissue and Fascia, Percutaneous Approach (ICD-10-PCS; principal; 2018-03-26)
DX: G45.9 Transient cerebral ischemic attack, unspecified (principal); I10 Essential (primary) hypertension; E11.65 Type 2 diabetes mellitus with hyperglycemia; E78.5 Hyperlipidemia, unspecified; F41.9 Anxiety disorder, unspecified; F32.9 Major depressive disorder, single episode, unspecified; F51.04 Psychophysiologic insomnia; K76.0 Fatty (change of) liver, not elsewhere classified; M25.78 Osteophyte, vertebrae; M48.02 Spinal stenosis, cervical region; E78.00 Pure hypercholesterolemia, unspecified; Z86.73 Personal history of transient ischemic attack (TIA), and cerebral infarction without residual deficits; Z87.891 Personal history of nicotine dependence; Z90.49 Acquired absence of other specified parts of digestive tract; Z82.49 Family history of ischemic heart disease and other diseases of the circulatory system

== ENCOUNTER 2018-04-25 18:00 | Inpatient (IN) | payer BC, OTHER ==
[2018-04-25 18:04] VITALS: BMI 33.4
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
[2018-04-25 18:34] LABS: BASO # 0.1 K/uL (0.0-0.2); BASO % 0.7 % (0.0-2.0); EOS # 0.4 K/uL (0.0-0.7); LYMPH # 3.2 K/uL (1.0-4.3); LYMPH % 37.4 % (20.0-40.0); MEAN CELL VOLUME 88.4 fL (80.0-94.0); MEAN CORPUSCULAR HEMOGLOBIN 29.9 pg (27.0-31.0); MEAN CORPUSCULAR HGB CONC 33.8 g/dL (33.0-37.0); MEAN PLATELET VOLUME 7.8 fL (7.2-11.7); MONO # 0.8 K/uL (0.0-0.8); MONO % 9.3 % (0.0-10.0); NEUT # 4.1 K/uL (1.8-7.0); NEUT % 47.6 % (50.0-75.0); RBC 5.01 Mil/uL (4.40-5.90); RED CELL DISTRIBUTION WIDTH 13.8 % (11.5-14.5); WHITE BLOOD COUNT 8.5 K/uL (4.8-10.8)
[2018-04-25 18:40] LABS: INR 1.1; PROTHROMBIN TIME 11.7 SECONDS (9.7-12.2)
[2018-04-25 18:52] LABS: ALB/GLOB RATIO 1.6 (1.0-2.1); ALT/SGPT 29 U/L (21-72); AST/SGOT 34 U/L (17-59); BLOOD UREA NITROGEN 14 mg/dL (9-20); CALCIUM 9.1 mg/dl (8.6-10.4); GFR NON-AFRICAN AMERICAN > 60; HDL CHOLESTEROL 35 mg/dL (30-70)
[2018-04-25 19:09] LABS: LDL CHOLESTEROL 60 mg/dL (0-129)
[2018-04-25 21:25] VITALS: RESP 20
[2018-04-26 00:46] VITALS: BP 143/89; PULSE 71; TEMP 97.9; O2SAT 97
--- NOTE | 2018-04-26 08:17 | CT ---
Date of service: 04/25/2018 PROCEDURE: CT HEAD WITHOUT CONTRAST. HISTORY: CVA COMPARISON: 03/26/2018. TECHNIQUE: Axial computed tomography images were obtained through the head/brain without intravenous contrast. Radiation dose: Total exam DLP = 1010.76 mGy-cm. This CT exam was performed using one or more of the following dose reduction techniques: Automated exposure control, adjustment of the mA and/or kV according to patient size, and/or use of iterative reconstruction technique. FINDINGS: HEMORRHAGE: No intracranial hemorrhage. BRAIN: There are mild chronic microangiopathic changes. There is a small old lacunar infarction in the right anterior limb of internal capsule. There is no mass, mass effect or abnormal extra-axial fluid collection. There is no territorial infarction. The midline sagittal structures are normal. VENTRICLES: The ventricles are normal in size, shape and configuration. CALVARIUM: There is no calvarial fracture or extracranial soft tissue swelling. PARANASAL SINUSES: Predominantly clear. MASTOID AIR CELLS: Predominantly clear. OTHER FINDINGS: None. IMPRESSION: No acute intracranial abnormality. Small old lacunar infarction in the right anterior limb of internal capsule. Mild chronic microangiopathic changes and mild age-related global parenchymal volume loss. A preliminary report was provided by [facility].
[2018-04-26] MEDS ORDERED: Home Med 1 UNIT (Metformin [Glucophage] 1,000 MG) PO SCH (10:00)
[2018-04-26] MEDS ORDERED: Aspirin 325 mg EC Tablets PO SCH (10:00)
[2018-04-26] MEDS ORDERED: Enoxaparin 40 mg Syringe SC SCH (10:00)
--- NOTE | 2018-04-26 13:35 | RAD ---
Date of service: 04/25/2018 HISTORY: Code Stroke COMPARISON: 03/26/2018. FINDINGS: LUNGS: The lungs are well inflated and clear. PLEURA: No pleural effusions or pneumothorax. CARDIOVASCULAR: The heart is normal in size. No aortic atherosclerotic calcifications present. OSSEOUS STRUCTURES: Within normal limits for the patient's age. VISUALIZED UPPER ABDOMEN: Normal. OTHER FINDINGS: None. IMPRESSION: No active pulmonary disease.
== END 2018-04-26 07:30 | disposition left against medical advice (07) | DRG 93 ==
LOC: C.ER 18:00 → C.9E 19:31 → C.5S 21:06
PROVIDERS: ADMIT Internal Medicine Nephrology; ATTEND Internal Medicine Nephrology
DX: R20.0 Anesthesia of skin (principal); R51 Headache; R53.1 Weakness; I10 Essential (primary) hypertension; E78.00 Pure hypercholesterolemia, unspecified; E11.9 Type 2 diabetes mellitus without complications